=== PATIENT | female | born 1940 | race Caucasian/White ===

== ENCOUNTER → 2018-08-29 08:06 | Outpatient (CLI) | payer MEDICARE, SELFPAY ==
[2018-08-29 10:01] LABS: Thyroid Stimulating Hormone 0.43 uIU/mL (0.47-4.68)
[2018-08-29 10:06] LABS: Aspartate Aminotransferase 26 IU/L (14-36); BUN Creatinine Ratio 16.4 (6-22); Blood Urea Nitrogen 18 mg/dL (7-17); Calcium 9.7 mg/dL (8.4-10.2); Carbon Dioxide 28 mmol/L (22-32); Chloride 102 mmol/L (98-107); Estimated Glomerular Filt Rate 48.2 mL/min (>60); Glucose 81 mg/dL (80-110); HDL Cholesterol 81 mg/dL (40-60); HEMOLYSIS < 15 (0-50); Sodium 139 mmol/L (137-145); Triglycerides 80 mg/dL (35-150)
[2018-08-29 10:14] LABS: Cholesterol 337 mg/dL (140-199); LDL Cholesterol Calculated 240 mg/dL (<100)
== END ==
PROVIDERS: PCP Internal Medicine; Visit Provider Internal Medicine
DX: E03.9 Hypothyroidism, unspecified (principal); E78.2 Mixed hyperlipidemia; N18.1 Chronic kidney disease, stage 1
CPT/HCPCS: 36415; 80048; 80061; 84443; 84450

== ENCOUNTER → 2019-08-31 08:19 | Outpatient (CLI) | payer MEDICARE, SELFPAY | PROVIDERS: PCP Internal Medicine; Referring Provider Internal Medicine; Visit Provider Internal Medicine | DX: E03.9 Hypothyroidism, unspecified (principal) | CPT/HCPCS: 36415; 84443 ==

== ENCOUNTER → 2020-10-12 19:19 | Outpatient (ROUT) | payer OTHER, SELFPAY ==
[2020-10-12 19:49] LABS: Add Manual Diff / Slide Review NO; Basophils Absolute Auto 0 /uL (0-100); Basophils Percent Auto 0.8 % (0-2); Eosinophils Absolute Auto 200 /uL (0-450); Eosinophils Percent Auto 3.7 % (2-4); Hematocrit 37.2 % (36-46); Hemoglobin 12.3 g/dL (12.0-16.0); Lymphocytes Absolute Auto 2200 /uL (1100-4500); Mean Corpuscular HGB Conc 33.2 % (30-36); Mean Corpuscular Hemoglobin 28.3 PG (26-34); Mean Corpuscular Volume 85.4 fL (80-100); Monocytes Absolute Auto 300 /uL (0-900); Monocytes Percent Auto 5.6 % (3-14); Neutrophils Absolute Auto 3200 /uL (1500-7000); Neutrophils Percent Auto 52.9 % (50-75); Platelet Count 233 X10^3/uL (150-400); Red Blood Cell Count 4.36 X10^6/uL (4.0-5.2); Red Cell Distribution Width 14.9 % (11.6-14.8)
[2020-10-12 20:18] LABS: Aspartate Aminotransferase 38 IU/L (14-36); BUN Creatinine Ratio 22.9 (6-22); Blood Urea Nitrogen 25 mg/dL (7-17); Calcium 9.8 mg/dL (8.4-10.2); Carbon Dioxide 27 mmol/L (22-32); Chloride 104 mmol/L (98-107); Estimated Glomerular Filt Rate 48.4 mL/min (>60); Glucose 93 mg/dL (80-110); HDL Cholesterol 75 mg/dL (40-60); HEMOLYSIS < 15 (0-50); Phosphorous 3.8 mg/dL (2.8-4.1); Potassium 4.3 mmol/L (3.4-5.1); Sodium 140 mmol/L (137-145); Triglycerides 156 mg/dL (35-150)
[2020-10-12 20:36] LABS: Cholesterol 354 mg/dL (140-199); LDL Cholesterol Calculated 248 mg/dL (<100)
[2020-10-12 20:38] LABS: Vitamin D 25 Hydroxy (D3) 108 ng/mL (30.0-100.0)
[2020-10-12 20:48] LABS: TSH w/ Reflex to FT4 4.89 uIU/mL (0.47-4.68)
[2020-10-12 21:52] LABS: Free T4, Direct Thyroxine 0.66 ng/dL (0.78-2.19)
[2020-10-14 07:39] LABS: Parathyroid Hormone Int 30 pg/mL (15-65)
== END ==
PROVIDERS: Visit Provider Internal Medicine
DX: N18.30 Chronic kidney disease, stage 3 unspecified (principal); E78.2 Mixed hyperlipidemia; E55.9 Vitamin D deficiency, unspecified; E03.9 Hypothyroidism, unspecified
CPT/HCPCS: 80048; 80061; 82306; 83970; 84100; 84439; 84443; 84450; 85025

== ENCOUNTER 2021-04-15 10:47 | Inpatient (IN) | payer OTHER, SELFPAY ==
[2021-04-15] VITALS (50 sets, daily range): BP systolic 112–188; BP diastolic 57–92; PULSE 60–81; RESP 12–28; TEMP 36.3–37.2; O2SAT 83–98; BMI 25.3; BMI 24.0
[2021-04-15 11:11] LABS: Add Manual Diff / Slide Review NO; Basophils Absolute Auto 0 /uL (0-100); Basophils Percent Auto 0.1 % (0-2); Eosinophils Absolute Auto 0 /uL (0-450); Hematocrit 39.1 % (36-46); Hemoglobin 13.2 g/dL (12.0-16.0); Lymphocytes Absolute Auto 1300 /uL (1100-4500); Lymphocytes Percent Auto 21.1 % (25-40); Mean Corpuscular HGB Conc 33.9 % (30-36); Mean Corpuscular Volume 82.7 fL (80-100); Monocytes Absolute Auto 300 /uL (0-900); Monocytes Percent Auto 5.2 % (3-14); Neutrophils Absolute Auto 4400 /uL (1500-7000); Neutrophils Percent Auto 73.6 % (50-75); Platelet Count 230 X10^3/uL (150-400); Red Blood Cell Count 4.73 X10^6/uL (4.0-5.2); Red Cell Distribution Width 14.6 % (11.6-14.8)
[2021-04-15 11:14] LABS: D Dimer 663 ng/mL (<230)
[2021-04-15 11:17] LABS: Lactate (Lactic Acid) 1.7 mmol/L (0.7-2.1)
[2021-04-15 11:18] LABS: Alanine Aminotransferase 25 IU/L (<35); Albumin 4.2 g/dL (3.5-5.0); Albumin Globulin Ratio 1.2 (1.0-2.8); Alkaline Phosphatase 63 U/L (38-126); Aspartate Aminotransferase 61 IU/L (14-36); BUN Creatinine Ratio 17.9 (6-22); Bilirubin Total 0.8 mg/dL (0.2-1.3); Blood Urea Nitrogen 19 mg/dL (7-17); Calcium 9.3 mg/dL (8.4-10.2); Carbon Dioxide 25 mmol/L (22-32); Chloride 95 mmol/L (98-107); Creatine Kinase 113 U/L (30-135); Globulin 3.5 g/dL (1.7-4.1); Glucose 122 mg/dL (80-110); HEMOLYSIS < 15 (0-50); Potassium 3.6 mmol/L (3.4-5.1); Sodium 129 mmol/L (137-145); Total Protein 7.7 g/dL (6.3-8.2)
[2021-04-15 11:29] LABS: Troponin I 0.018 ng/mL (0.01-0.034)
--- NOTE | 2021-04-15 11:30 | ED.SOB ---
HPI - SOB/Dyspnea General Chief Complaint: Shortness of Breath/Dyspnea Stated Complaint: SOB Covid+ Time Seen by Provider: 04/15/21 10:58 Source: patient and EMS Mode of arrival: EMS Limitations: no limitations History of Present Illness HPI Narrative: The patient did a home test 3 days ago that was positive for COVID-19. She did experiencing cough and congestion for about 3 weeks, seemingly worsening over the past 2 weeks. She had a headache. She denies high fever. She had no change in taste or smell. She has no chronic cardiopulmonary disease. She arrives via EMS due to the complaints of dyspnea. Paramedics noted her to have O2 sats of 79% on room air. She quickly increased to 90s with nasal cannula O2. She is not vaccinated. She has had no obvious exposure to COVID-19. She is alert, and talking in full sentences at the time my interview. She arrives now only at her daughter's encouragement, the patient did not recognize her need for assistance. She is nonsmoker. She has no chronic cardiopulmonary disease. He has no coronary disease. She denies hypertension, diabetes or hyperlipidemia. Her only prescription medication is for hypothyroidism. Related Data Allergies Allergy/AdvReac Type Severity Reaction Status Date / Time No Known Drug Allergies Allergy Verified 04/15/21 11:12 Review of Systems Constitutional Constitutional: Denies body ache(s), Denies chills, Reports fatigue, Denies fever(s), Reports headache(s) and Denies night sweats Eyes Eyes: Denies eye discharge, Denies irritation and Denies itchy eyes ENT Ears, Nose, Mouth, and Throat: Denies vertigo, Denies dizziness, Reports headache(s), Denies hoarseness, Denies nasal congestion and Denies sore throat Comments: She has no loss of taste or smell. Cardiovascular Cardiovascular: Denies chest pain, Denies rapid heart rate, Denies pedal edema and Reports dyspnea Respiratory Respiratory: Reports cough, Denies hemoptysis and Reports dyspnea Gastrointestinal Gastrointestinal: Denies abdominal pain and Denies nausea Genitourinary Genitourinary: Denies dysuria Musculoskeletal Comments: No back pain. No lower extremity pain or edema. Integumentary/Breasts Skin/Breast: Denies rash Neurologic Neurologic: Denies confusion, Denies vertigo, Denies dizziness and Reports headache(s) Psychiatric Psychiatric: Denies confusion Endocrine Endocrine: Reports fatigue Hematologic/Lymphatic Hematologic/Lymphatic: Denies easy bruising Allergic/Immunologic Allergic/Immunologic: Denies itchy eyes Patient History Medical History (Updated 04/15/21 @ 13:49 by Adrián Little MD) Hypothyroidism Social History Smoking Status: Never smoker Smoking Status: Never smoker alcohol intake frequency: holidays/special occasions only Substance Use Type: does not use Exam Initial Vital Signs Initial Vital Signs: Vital Signs Temperature 98.4 F 04/15/21 10:47 Pulse Rate 77 04/15/21 10:47 Respiratory Rate 24 04/15/21 10:47 Blood Pressure 131/74 04/15/21 10:47 Pulse Oximetry 86 L 04/15/21 10:47 Const General: cooperative, healthy appearing and comfortable HENMT Head: normal to inspection and No scalp tenderness Face and sinus: normal facial exam Mouth: oral mucosae normal Throat: posterior oropharynx normal Eyes Conjunctivae: conjunctivae normal Neck Neck: No JVD Thyroid: nontender Resp Auscultation: rales bilaterally throughout Cardio Rhythm: regular rhythm Heart Sounds: S1 normal, S2 normal and no murmurs Pulses: radial pulses present GI Inspection: normal to inspection Palpation: soft and No tender Auscultation: normal bowel sounds Back/Spine/Pelvis Back: No CVA tenderness and No ecchymosis Thoracic/Lumbar Spine: thoracic and lumbar spine normal to inspection Skin General: No erythema Rashes: no rashes Wounds: no wounds Neuro General: patient alert, patient awake, patient oriented x3 and no focal motor deficits Cranial Nerves: CN's II-XI intact bilaterally Cognition: normal cognition Speech: speech normal Motor: muscle tone normal throughout Sensory Exam: no sensory deficits noted Extrem General: normal to inspection and no calf tenderness Psych Mental Status: mental status grossly normal Course Course Course Narrative: COVID-19 has been confirmed by lab test, and CT the chest. She is currently requiring 15 L of oxygen, with O2 sats in the mid 90s. She is talking in full sentences. Abuse ill will be given. Decadron will be given. The case has been discussed with the hospitalist, Dr. Chery. The patient will be admitted for ongoing care. Orders Ordered: ED Orders 04/15/21 11:00 Complete Blood Count AUTO DIFF Stat Comprehensive Metabolic Panel Stat D Dimer Stat Lactate (Lactic Acid) Stat Procalcitonin Stat Troponin & CK Cardiac Panel Stat 04/15/21 11:01 EKG-12 Lead Stat 04/15/21 11:03 COVID19 - ADMIT (FREELANCE DATA ENTRY swab/PCR) Stat Influenza A & B (PCR) Stat 04/15/21 11:08 Arterial Blood Gas Stat Blood Culture Stat 04/15/21 11:31 CT angio chest abdomen Stat Discontinued Medications Albuterol (Albuterol 2.5 Mg/3 Ml Neb (Adult)) 2.5 mg INH NOW ONE Stop: 04/15/21 13:23 Last Admin: 04/15/21 13:45 Dose: 2.5 mg Documented by: Dexamethasone (Dexamethasone 10 Mg/Ml Vial) 6 mg IV NOW ONE Stop: 04/15/21 13:13 Last Admin: 04/15/21 13:33 Dose: 6 mg Documented by: Vital Signs Vital signs: Vital Signs - 8 hr 04/15/21 10:47 04/15/21 10:50 04/15/21 10:51 Temperature 98.4 F 97.4 F L Pulse Rate 77 80 76 Respiratory Rate 24 24 23 Blood Pressure 131/74 131/74 Pulse Oximetry 86 L 83 L 90 L 04/15/21 11:00 04/15/21 11:15 04/15/21 11:30 Temperature Pulse Rate 72 78 74 Respiratory Rate 24 24 20 Blood Pressure 134/69 126/58 L Pulse Oximetry 94 94 96 04/15/21 11:45 04/15/21 11:58 04/15/21 12:00 Temperature Pulse Rate 74 81 72 Respiratory Rate 20 20 Blood Pressure 112/58 L 188/92 H 149/63 H Pulse Oximetry 95 94 95 04/15/21 12:15 04/15/21 12:30 04/15/21 12:45 Temperature Pulse Rate 71 71 77 Respiratory Rate 21 24 22 Blood Pressure 140/69 137/65 132/71 Pulse Oximetry 95 94 04/15/21 13:00 04/15/21 13:15 04/15/21 13:30 Temperature Pulse Rate 69 72 72 Respiratory Rate 17 17 20 Blood Pressure 130/70 135/74 136/76 Pulse Oximetry 93 94 94 04/15/21 13:46 Temperature Pulse Rate 76 Respiratory Rate 24 Blood Pressure Pulse Oximetry 92 MDM - SOB/Dyspnea Lab Data Result diagrams: 04/15/21 11:00 04/15/21 11:00 Labs: Lab Results 04/15/21 04/15/21 04/15/21 Range/Units 11:00 11:00 11:00 WBC 6.0 (4.5-11.0) X10^3/uL RBC 4.73 (4.0-5.2) X10^6/uL Hgb 13.2 (12.0-16.0) g/dL Hct 39.1 (36-46) % MCV 82.7 (80-100) fL MCH 28.0 (26-34) PG MCHC 33.9 (30-36) % RDW 14.6 (11.6-14.8) % Plt Count 230 (150-400) X10^3/uL Neut % (Auto) 73.6 (50-75) % Lymph % (Auto) 21.1 L (25-40) % Jefferson % (Auto) 5.2 (3-14) % Eos % (Auto) 0.0 L (2-4) % Baso % (Auto) 0.1 (0-2) % Neut # (Auto) 4400 (6459-7140) /uL Lymph # (Auto) 1300 (0076-3764) /uL Jefferson # (Auto) 300 (0-900) /uL Eos # (Auto) 0 (0-450) /uL Baso # (Auto) 0 (0-100) /uL D-Dimer 663 H (<230) ng/mL ABG pH (7.35-7.45) ABG pCO2 (35-45) mmHg ABG pO2 (80-100) mmHg ABG HCO3 (22-26) mmol/L ABG Total CO2 (21-31) mmol/L ABG O2 Saturation (95-100) % ABG Base Excess (-2-2) mmol/L FiO2 Sodium (137-145) mmol/L Potassium (3.4-5.1) mmol/L Chloride (98-107) mmol/L Carbon Dioxide (22-32) mmol/L BUN (7-17) mg/dL Creatinine (0.52-1.04) mg/dL Estimated GFR (>60) mL/min BUN/Creatinine Ratio (6-22) Glucose (80-110) mg/dL Lactate (0.7-2.1) mmol/L Calcium (8.4-10.2) mg/dL Total Bilirubin (0.2-1.3) mg/dL AST (14-36) IU/L ALT (<35) IU/L Alkaline Phosphatase (38-126) U/L Total Creatine Kinase (30-135) U/L CK-MB (CK-2) (<2.37) ng/mL CK-MB (CK-2) Rel Index (1.5-5.0) % Troponin I (0.01-0.034) ng/mL Total Protein (6.3-8.2) g/dL Albumin (3.5-5.0) g/dL Globulin (1.7-4.1) g/dL Albumin/Globulin Ratio (1.0-2.8) Procalcitonin 0.43 (<0.5) ng/mL SARS-CoV-2 (PCR) (Negative) Influenza A (RT-PCR) (NEGATIVE) Influenza B (RT-PCR) (NEGATIVE) 04/15/21 04/15/21 04/15/21 Range/Units 11:00 11:00 11:03 WBC (4.5-11.0) X10^3/uL RBC (4.0-5.2) X10^6/uL Hgb (12.0-16.0) g/dL Hct (36-46) % MCV (80-100) fL MCH (26-34) PG MCHC (30-36) % RDW (11.6-14.8) % Plt Count (150-400) X10^3/uL Neut % (Auto) (50-75) % Lymph % (Auto) (25-40) % Jefferson % (Auto) (3-14) % Eos % (Auto) (2-4) % Baso % (Auto) (0-2) % Neut # (Auto) (3093-6045) /uL Lymph # (Auto) (7231-8031) /uL Jefferson # (Auto) (0-900) /uL Eos # (Auto) (0-450) /uL Baso # (Auto) (0-100) /uL D-Dimer (<230) ng/mL ABG pH (7.35-7.45) ABG pCO2 (35-45) mmHg ABG pO2 (80-100) mmHg ABG HCO3 (22-26) mmol/L ABG Total CO2 (21-31) mmol/L ABG O2 Saturation (95-100) % ABG Base Excess (-2-2) mmol/L FiO2 Sodium 129 L (137-145) mmol/L Potassium 3.6 (3.4-5.1) mmol/L Chloride 95 L (98-107) mmol/L Carbon Dioxide 25 (22-32) mmol/L BUN 19 H (7-17) mg/dL Creatinine 1.06 H (0.52-1.04) mg/dL Estimated GFR 50.0 L (>60) mL/min BUN/Creatinine Ratio 17.9 (6-22) Glucose 122 H (80-110) mg/dL Lactate 1.7 (0.7-2.1) mmol/L Calcium 9.3 (8.4-10.2) mg/dL Total Bilirubin 0.8 (0.2-1.3) mg/dL AST 61 H (14-36) IU/L ALT 25 (<35) IU/L Alkaline Phosphatase 63 (38-126) U/L Total Creatine Kinase 113 (30-135) U/L CK-MB (CK-2) 0.87 (<2.37) ng/mL CK-MB (CK-2) Rel Index 0.8 L (1.5-5.0) % Troponin I 0.018 (0.01-0.034) ng/mL Total Protein 7.7 (6.3-8.2) g/dL Albumin 4.2 (3.5-5.0) g/dL Globulin 3.5 (1.7-4.1) g/dL Albumin/Globulin Ratio 1.2 (1.0-2.8) Procalcitonin (<0.5) ng/mL SARS-CoV-2 (PCR) (Negative) Influenza A (RT-PCR) Flu a negative (NEGATIVE) Influenza B (RT-PCR) Flu b negative (NEGATIVE) 04/15/21 04/15/21 Range/Units 11:03 11:08 WBC (4.5-11.0) X10^3/uL RBC (4.0-5.2) X10^6/uL Hgb (12.0-16.0) g/dL Hct (36-46) % MCV (80-100) fL MCH (26-34) PG MCHC (30-36) % RDW (11.6-14.8) % Plt Count (150-400) X10^3/uL Neut % (Auto) (50-75) % Lymph % (Auto) (25-40) % Jefferson % (Auto) (3-14) % Eos % (Auto) (2-4) % Baso % (Auto) (0-2) % Neut # (Auto) (1606-3049) /uL Lymph # (Auto) (1402-7605) /uL Jefferson # (Auto) (0-900) /uL Eos # (Auto) (0-450) /uL Baso # (Auto) (0-100) /uL D-Dimer (<230) ng/mL ABG pH 7.49 H (7.35-7.45) ABG pCO2 27.5 L (35-45) mmHg ABG pO2 59 L (80-100) mmHg ABG HCO3 21 L (22-26) mmol/L ABG Total CO2 22 (21-31) mmol/L ABG O2 Saturation 93 L (95-100) % ABG Base Excess -2.0 (-2-2) mmol/L FiO2 44 Sodium (137-145) mmol/L Potassium (3.4-5.1) mmol/L Chloride (98-107) mmol/L Carbon Dioxide (22-32) mmol/L BUN (7-17) mg/dL Creatinine (0.52-1.04) mg/dL Estimated GFR (>60) mL/min BUN/Creatinine Ratio (6-22) Glucose (80-110) mg/dL Lactate (0.7-2.1) mmol/L Calcium (8.4-10.2) mg/dL Total Bilirubin (0.2-1.3) mg/dL AST (14-36) IU/L ALT (<35) IU/L Alkaline Phosphatase (38-126) U/L Total Creatine Kinase (30-135) U/L CK-MB (CK-2) (<2.37) ng/mL CK-MB (CK-2) Rel Index (1.5-5.0) % Troponin I (0.01-0.034) ng/mL Total Protein (6.3-8.2) g/dL Albumin (3.5-5.0) g/dL Globulin (1.7-4.1) g/dL Albumin/Globulin Ratio (1.0-2.8) Procalcitonin (<0.5) ng/mL SARS-CoV-2 (PCR) Positive H (Negative) Influenza A (RT-PCR) (NEGATIVE) Influenza B (RT-PCR) (NEGATIVE) Imaging Data CT scan - chest: My Impression: The patient has been given initial doses of Decadron and albuterol. She will be admitted ongoing care. The family had requested transfer to [facility], that hospitalist contacted and there are no beds currently available there. Radiologist's Impression: [address] [address] [address] Scan Report Signed Patient: Mora Mosqueda MR#: [id number] : 1940 Acct:[id number] Age/Sex: 80 / F Date of Service: 04/15/21 Loc: ED Accession Number: [id number] ?? Procedure: CT angio chest abdomen Ordering Provider: Adrián Little MD PROCEDURE:? CT ANGIO CHEST ABDOMEN ? INDICATIONS:? Dyspnea.Covid. Elevated D-dimer ? TECHNIQUE:? Precontrast 5 mm thick sections acquired from the lung apices to the iliac crests.? After the administration of intravenous contrast, 2.5 mm thick sections again acquired from the lung apices to the iliac crests.? 10 mm maximum intensity projection (MIP) oblique sagittal and coronal reformats were then acquired.? For radiation dose reduction, the following was used:? automated exposure control.? ? COMPARISON:? None. ? FINDINGS:? Image quality:? Excellent.? ? AORTA:? The aorta measures 4.8 centimeters within the ascending aorta at the level of the right pulmonary artery.? There is normal tapering distally.? Scattered vascular calcifications are noted throughout the aorta and branch vessels.? No evidence of dissection or other acute vascular abnormality. abnormality. ? CHEST:? Lungs and pleura:? Diffuse predominantly peripheral ground-glass opacities and interstitial thickening.? There is bronchiectasis most noticeably at the lung bases in the lung apices.? Cystic region within the right middle lobe likely cycle of remote infection or trauma.. ? Mediastinum:? Heart size is normal.? No pericardial effusion.? No mediastinal or hilar adenopathy by size criteria.? Multiple prominent mediastinal/hilar lymph nodes, likely reactive.? Central pulmonary arteries are normal in size.? No central pulmonary embolus.? Esophagus is normal in caliber.? Small hiatal hernia. ? Bones and chest wall:? No axillary adenopathy by size criteria.? Thyroid gland is unremarkable.? No suspicious bony lesions.? No vertebral body compression fractures.? ? ? ABDOMEN:? Vasculature:? Celiac trunk and mesenteric arteries are patent.? Renal arteries are also patent.? ? Solid organs:? Liver is normal in size and enhancement.? Gallbladder demonstrates gallstones, otherwise unremarkable.? Biliary system is non dilated.? Pancreas enhances normally.? Spleen is normal in size and enhancement.? No adrenal nodules.? Both kidneys are normal in size and enhancement, without hydronephrosis.? ? Peritoneum and bowel:? No free fluid or air.? Bowel loops are normal in caliber and wall thickness.? Fluid is noted throughout the imaged large bowel. ? Nodes and vessels:? No retroperitoneal or mesenteric adenopathy by size criteria.? Inferior vena cava is normal in morphology.? ? Bones:? No suspicious bony lesions.? Degenerative changes of the shoulders and spine.? This is severe within the left shoulder.? There is grade 1 anterolisthesis of L3 on L4 and L4 on L5.? S-shaped curvature is noted of the thoracolumbar spine.? No vertebral body compression fractures.? ? Miscellaneous:? Small fat containing periumbilical hernia. ? ? IMPRESSION:? ? No evidence of aortic dissection. ? 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 ? Diffuse ground-glass and interstitial opacity is suggestive of atypical infection versus inflammation.? This includes Covid pneumonia.? Bronchiectasis at the lung apices and lung bases likely suggest scarring and a chronic process.? Recommend clinical correlation. ? Cholelithiasis. ? Fluid noted throughout the imaged colon.? Recommend correlation for diarrheal illness. ? ? Dictated by: Mode Hughes D.O. on 04/15/2021 at 11:27 ? ? Approved by: Mode Hughes D.O. on 04/15/2021 at 11:37?? ECG Data Attestation: I personally reviewed and interpreted this ECG as follows: (Normal sinus rhythm rate 77 beats per minute. PACs. Normal intervals. QTC 410/QTC 463. No acute ST T wave changes.) Critical Care Time Critical Care Time Critical Care Time: Yes Total Critical Care Time: 35 Attestation: Critical care time includes the initial assessment patient, review of EKG, radiology and lab data, and clinical decision making. The patient was informed of the treatment plan. The hospitalist was consulted. Discharge Plan Departure Patient Disposition: Admitted As Inpatient Clinical Impression: 2019 novel coronavirus-infected pneumonia (NCIP), Hypothyroidism Admit Date/Time: 04/15/21 14:09 Admit Provider: John Chery
--- NOTE | 2021-04-15 11:31 | DI.CT.S_ITS ---
PROCEDURE: CT ANGIO CHEST ABDOMEN INDICATIONS: Dyspnea.Covid. Elevated D-dimer TECHNIQUE: Precontrast 5 mm thick sections acquired from the lung apices to the iliac crests. After the administration of intravenous contrast, 2.5 mm thick sections again acquired from the lung apices to the iliac crests. 10 mm maximum intensity projection (MIP) oblique sagittal and coronal reformats were then acquired. For radiation dose reduction, the following was used: automated exposure control. COMPARISON: None. FINDINGS: Image quality: Excellent. AORTA: The aorta measures 4.8 centimeters within the ascending aorta at the level of the right pulmonary artery. There is normal tapering distally. Scattered vascular calcifications are noted throughout the aorta and branch vessels. No evidence of dissection or other acute vascular abnormality. abnormality. CHEST: Lungs and pleura: Diffuse predominantly peripheral ground-glass opacities and interstitial thickening. There is bronchiectasis most noticeably at the lung bases in the lung apices. Cystic region within the right middle lobe likely cycle of remote infection or trauma.. Mediastinum: Heart size is normal. No pericardial effusion. No mediastinal or hilar adenopathy by size criteria. Multiple prominent mediastinal/hilar lymph nodes, likely reactive. Central pulmonary arteries are normal in size. No central pulmonary embolus. Esophagus is normal in caliber. Small hiatal hernia. Bones and chest wall: No axillary adenopathy by size criteria. Thyroid gland is unremarkable. No suspicious bony lesions. No vertebral body compression fractures. ABDOMEN: Vasculature: Celiac trunk and mesenteric arteries are patent. Renal arteries are also patent. Solid organs: Liver is normal in size and enhancement. Gallbladder demonstrates gallstones, otherwise unremarkable. Biliary system is non dilated. Pancreas enhances normally. Spleen is normal in size and enhancement. No adrenal nodules. Both kidneys are normal in size and enhancement, without hydronephrosis. Peritoneum and bowel: No free fluid or air. Bowel loops are normal in caliber and wall thickness. Fluid is noted throughout the imaged large bowel. Nodes and vessels: No retroperitoneal or mesenteric adenopathy by size criteria. Inferior vena cava is normal in morphology. Bones: No suspicious bony lesions. Degenerative changes of the shoulders and spine. This is severe within the left shoulder. There is grade 1 anterolisthesis of L3 on L4 and L4 on L5. S-shaped curvature is noted of the thoracolumbar spine. No vertebral body compression fractures. Miscellaneous: Small fat containing periumbilical hernia. IMPRESSION: No evidence of aortic dissection. 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 Diffuse ground-glass and interstitial opacity is suggestive of atypical infection versus inflammation. This includes Covid pneumonia. Bronchiectasis at the lung apices and lung bases likely suggest scarring and a chronic process. Recommend clinical correlation. Cholelithiasis. Fluid noted throughout the imaged colon. Recommend correlation for diarrheal illness. Dictated by: Mode Hughes D.O. on 04/15/2021 at 11:27 Approved by: Mode Hughes D.O. on 04/15/2021 at 11:37
[2021-04-15 11:33] LABS: CKMB % Relative Index 0.8 % (1.5-5.0); Creatine Kinase MB 0.87 ng/mL (<2.37)
[2021-04-15 11:38] LABS: PCO2 ABG 27.5 mmHg (35-45); pH ABG 7.49 (7.35-7.45)
[2021-04-15 11:39] LABS: PO2 ABG 59 mmHg (80-100)
[2021-04-15 11:40] LABS: Fractionated Inspired Oxygen 44; HCO3 ABG 21 mmol/L (22-26); Oxygen Saturation ABG 93 % (95-100); TCO2 ABG 22 mmol/L (21-31)
--- NOTE | 2021-04-15 11:42 | RT ---
Pt dayna well, no distress noted and placed on HFNC at 12 lpm nc and dayna well. Sao2 94%, pt taking deep breaths and coughing.
[2021-04-15 11:56] LABS: Procalcitonin 0.43 ng/mL (<0.5)
[2021-04-15 12:11] LABS: COVID19 - ADMIT (NP swab/PCR) POSITIVE (Negative)
[2021-04-15 12:12] LABS: Influenza A - CEPHEID Flu A NEGATIVE (NEGATIVE); Influenza B - CEPHEID Flu B NEGATIVE (NEGATIVE)
--- NOTE | 2021-04-15 12:12 | PC.NURSE ---
Werner Soares- Daughter [phone] Harjeet Mosqueda- Son [phone]
[2021-04-15] MEDS: DEXAMETHASONE 10 MG/ML VIAL 6 MG IV (13:33)
[2021-04-15] MEDS: ALBUTEROL 2.5 MG/3 ML NEB (ADULT) INH (13:45)
--- NOTE | 2021-04-15 17:19 | PM.HP.1 ---
History of Present Illness History of Present Illness Date Patient Seen: 04/15/21 Time Patient Seen: 17:20 Chief complaint: SOB Covid+ Narrative: This is a 80-year-old female with a past medical history of hypothyroidism who was brought in by EMS after being seen by her daughter today who stated that she needed to go to the hospital. Over the past 2 weeks patient has had a dry, nonproductive cough with worsening shortness of breath, mainly on exertion. She denies any chest pain, lower extremity swelling, or overt fever. But she has had diarrhea for the past week, and a loss of taste and smell with decreased appetite over that same period of time. She further endorses headaches, muscle aches, joint pains, generalized weakness and malaise worsening over the past week. Patient has not been vaccinated against COVID-19. Two weeks ago she attended a large gathering at a [employer] ([place] with approximately 100 people. She knows of 1 other person who became COVID positive after that event. She has also been out and about in the community without much restriction. Per ER report, the patient was hypoxic in the field with O2 saturations in the mid 70s. On 6 L here her O2 saturations were in the low 80s. They improved to the low 90s on told 15 L via high-flow nasal cannula and the patient appeared more comfortable. She was initially to quite tachypneic but this improved with supplemental oxygen. ABG showed a PO2 on 6 L of 59, with a pCO2 of 27.5, and a pH of 7.49. Initial chemistries revealed a sodium level of 129, chloride of 95, creatinine of 1.06 which appears near baseline. She had a mild AST elevation at 61 but the remainder of her chemistry panel was unremarkable. Troponin was within normal limits at 0.018. EKG showed normal sinus rhythm with without evidence of acute ischemia. COVID-19 testing was positive, rapid flu PCR testing was negative for both flu a and flu B. CT angiogram of her chest and abdomen showed diffuse bilateral pulmonary ground-glass opacities and interstitial opacities. There was also an incidental 4.8 cm ascending aortic aneurysm that was noted. The patient was admitted to Medicine for further management of her acute respiratory failure with hypoxia secondary to COVID-19 pneumonia. Patient History Medical History Hypothyroidism Surgical History H/O: hysterectomy Family & Social History Family History Mother CAD (coronary artery disease) Father CAD (coronary artery disease) CVA (cerebral vascular accident) Safety & Behavioral: Feels Safe in Current Yes Environment Been Physically Hurt or No Threatened By a Person Tobacco & Substance use: Smoking Status Never smoker alcohol intake frequency holiday/special occasion Substance Use Type does not use Meds Home Medications and Allergies Home Medications Medication Instructions Recorded Confirmed Type levothyroxine 50 mcg tablet 50 mcg PO DAILY 04/15/21 04/15/21 History Allergies Allergy/AdvReac Type Severity Reaction Status Date / Time No Known Drug Allergies Allergy Verified 04/15/21 11:12 Review of Systems Review of Systems Narrative: All other systems reviewed with the patient and are negative unless otherwise stated. Exam Vital Signs (past 8 hours): - 04/15/21 10:47 04/15/21 10:50 04/15/21 10:51 Temperature 98.4 F 97.4 F L Pulse Rate 77 80 76 Respiratory Rate 24 24 23 Blood Pressure 131/74 131/74 Pulse Oximetry 86 L 83 L 90 L 04/15/21 11:00 04/15/21 11:15 04/15/21 11:30 Temperature Pulse Rate 72 78 74 Respiratory Rate 24 24 20 Blood Pressure 134/69 126/58 L Pulse Oximetry 94 94 96 04/15/21 11:45 04/15/21 11:58 04/15/21 12:00 Temperature Pulse Rate 74 81 72 Respiratory Rate 20 20 Blood Pressure 112/58 L 188/92 H 149/63 H Pulse Oximetry 95 94 95 04/15/21 12:15 04/15/21 12:30 04/15/21 12:45 Temperature Pulse Rate 71 71 77 Respiratory Rate 21 24 22 Blood Pressure 140/69 137/65 132/71 Pulse Oximetry 95 94 04/15/21 13:00 04/15/21 13:15 04/15/21 13:30 Temperature Pulse Rate 69 72 72 Respiratory Rate 17 17 20 Blood Pressure 130/70 135/74 136/76 Pulse Oximetry 93 94 94 04/15/21 13:45 04/15/21 13:46 04/15/21 14:00 Temperature Pulse Rate 75 76 76 Respiratory Rate 20 24 19 Blood Pressure 139/77 114/57 L Pulse Oximetry 92 92 90 L 04/15/21 14:15 04/15/21 14:30 04/15/21 14:44 Temperature Pulse Rate 79 71 74 Respiratory Rate 17 17 23 Blood Pressure 130/64 129/67 Pulse Oximetry 92 85 L 94 04/15/21 14:45 04/15/21 15:00 04/15/21 15:15 Temperature 98.9 F Pulse Rate 73 73 69 Respiratory Rate 21 24 24 Blood Pressure 127/69 139/74 137/75 Pulse Oximetry 93 95 97 04/15/21 15:30 04/15/21 15:45 04/15/21 16:00 Temperature Pulse Rate 67 66 71 Respiratory Rate 22 24 21 Blood Pressure 125/69 132/73 132/74 Pulse Oximetry 98 96 94 04/15/21 16:15 04/15/21 16:30 Temperature 97.6 F Pulse Rate 67 72 Respiratory Rate 22 20 Blood Pressure 135/77 143/72 H Pulse Oximetry 93 90 L Oxygen Delivery Method High Flow Nasal Cannula Oxygen Flow Rate 15 Narrative Exam Narrative: GENERAL APPEARANCE: Well developed, well nourished, but mildly ill-appearing elderly female, in no acute distress and appears comfortable. SKIN: Inspection of the skin reveals no rashes, ulcerations. HEENT: Normocephalic atraumatic, extraocular muscles are intact, oropharynx is clear and mucous membranes are moist, neck is supple without adenopathy NECK: Supple and symmetric. There was no thyroid enlargement, and no tenderness, or masses were felt. CHEST: Normal AP diameter and normal contour without any kyphoscoliosis. LUNGS: Auscultation of the lungs revealed bilateral lower lobe crackles with R > L. No wheezing CARDIOVASCULAR: There was a regular rate and rhythm with a 2/6 systolic murmur. Peripheral pulses were 2+ and symmetric. ABDOMEN: S NT ND MUSCULOSKELETAL: There was no tenderness or effusions noted. Muscle strength and tone were normal. EXTREMITIES: No cyanosis, clubbing or edema. NEUROLOGIC: Alert and oriented x 3. Normal affect. Strength is +5/5 in the Upper Extremities and Lower Extremities Bilaterally. Sensation to touch was normal. Objective Imaging CT scan - chest: Radiologist's impression: No evidence of aortic dissection. ? 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 ? Diffuse ground-glass and interstitial opacity is suggestive of atypical infection versus inflammation.? This includes Covid pneumonia.? Bronchiectasis at the lung apices and lung bases likely suggest scarring and a chronic process.? Recommend clinical correlation. ? Cholelithiasis. ? Fluid noted throughout the imaged colon.? Recommend correlation for diarrheal illness. Labs Result Diagrams: 04/15/21 11:00 04/15/21 11:00 Labs: Laboratory Results - last 24 hr 04/15/21 04/15/21 04/15/21 11:00 11:00 11:00 WBC 6.0 RBC 4.73 Hgb 13.2 Hct 39.1 MCV 82.7 MCH 28.0 MCHC 33.9 RDW 14.6 Plt Count 230 Neut % (Auto) 73.6 Lymph % (Auto) 21.1 L [place] % (Auto) 5.2 Eos % (Auto) 0.0 L Baso % (Auto) 0.1 Neut # (Auto) 4400 Lymph # (Auto) 1300 [place] # (Auto) 300 Eos # (Auto) 0 Baso # (Auto) 0 D-Dimer 663 H ABG pH ABG pCO2 ABG pO2 ABG HCO3 ABG Total CO2 ABG O2 Saturation ABG Base Excess FiO2 Sodium Potassium Chloride Carbon Dioxide BUN Creatinine Estimated GFR BUN/Creatinine Ratio Glucose Lactate Calcium Total Bilirubin AST ALT Alkaline Phosphatase Total Creatine Kinase CK-MB (CK-2) CK-MB (CK-2) Rel Index Troponin I Total Protein Albumin Globulin Albumin/Globulin Ratio Procalcitonin 0.43 SARS-CoV-2 (PCR) Influenza A (RT-PCR) Influenza B (RT-PCR) 04/15/21 04/15/21 04/15/21 11:00 11:00 11:03 WBC RBC Hgb Hct MCV MCH MCHC RDW Plt Count Neut % (Auto) Lymph % (Auto) [place] % (Auto) Eos % (Auto) Baso % (Auto) Neut # (Auto) Lymph # (Auto) [place] # (Auto) Eos # (Auto) Baso # (Auto) D-Dimer ABG pH ABG pCO2 ABG pO2 ABG HCO3 ABG Total CO2 ABG O2 Saturation ABG Base Excess FiO2 Sodium 129 L Potassium 3.6 Chloride 95 L Carbon Dioxide 25 BUN 19 H Creatinine 1.06 H Estimated GFR 50.0 L BUN/Creatinine Ratio 17.9 Glucose 122 H Lactate 1.7 Calcium 9.3 Total Bilirubin 0.8 AST 61 H ALT 25 Alkaline Phosphatase 63 Total Creatine Kinase 113 CK-MB (CK-2) 0.87 CK-MB (CK-2) Rel Index 0.8 L Troponin I 0.018 Total Protein 7.7 Albumin 4.2 Globulin 3.5 Albumin/Globulin Ratio 1.2 Procalcitonin SARS-CoV-2 (PCR) Influenza A (RT-PCR) Flu a negative Influenza B (RT-PCR) Flu b negative 04/15/21 04/15/21 11:03 11:08 WBC RBC Hgb Hct MCV MCH MCHC RDW Plt Count Neut % (Auto) Lymph % (Auto) [place] % (Auto) Eos % (Auto) Baso % (Auto) Neut # (Auto) Lymph # (Auto) [place] # (Auto) Eos # (Auto) Baso # (Auto) D-Dimer ABG pH 7.49 H ABG pCO2 27.5 L ABG pO2 59 L ABG HCO3 21 L ABG Total CO2 22 ABG O2 Saturation 93 L ABG Base Excess -2.0 FiO2 44 Sodium Potassium Chloride Carbon Dioxide BUN Creatinine Estimated GFR BUN/Creatinine Ratio Glucose Lactate Calcium Total Bilirubin AST ALT Alkaline Phosphatase Total Creatine Kinase CK-MB (CK-2) CK-MB (CK-2) Rel Index Troponin I Total Protein Albumin Globulin Albumin/Globulin Ratio Procalcitonin SARS-CoV-2 (PCR) Positive H Influenza A (RT-PCR) Influenza B (RT-PCR) Assessment & Plan Assessment & Plan narrative: 1. Acute respiratory failure with hypoxia secondary to COVID 19 pneumonia, present on admission - discussed treatments with patient. She is agreeable to proning, decadron and barcitinib. She does not wish to start remdesevir therapy. - continue supplemental O2 as needed. Currently on HFNC at 12-15L. Goal O2 89-96%. Wean as tolerated. - prone as much as tolerated. - symptomatic therapy with tylenol, motrin, immodium okay if severe diarrhea. - Likely date exposed was 04/01/21 with symptoms starting shortly after. - CT angio chest and abdomen (not PE protocol) did not show evidence of a central pulmonary embolus. 2. Hypothyroidism, chronic - no overt symptoms. Check TSH. 3. Hyponatremia, presumed acute - likely secondary to dehydation. Provide light rehydration given recent decreased PO intake and diarrhea with 70 mL / hr NS. Watch for signs of volume overload but no known heart disease or failure. 4. Ascending aortic aneurysm - 4.8 cm on CTA performed in ER. Recommend outpatient follow up. I have utilized all available immediate resources to obtain, update, or review the patient's current medications. CODE: DNI, would be open to shocking of her heart but if resuscitation means placing on a ventilator she is against this. Surrogate decision maker is her daughter. DVT: Lovenox daily Dispo: Admit as inpatient, if advanced to heated high flow will make ICU. COVID-19 COVID-19 status: Positive Time Spent With Patient Critical Care time: I spent a total of [] minutes of critical care time on this patient's care today; this time is exclusive of procedural time. Quality MIPS - Admit I confirm the patient?s Advance Care Plan is present, Code status is documented, Surrogate decision maker is in patient?s record [If Yes, STOP here]: Yes
[2021-04-15] MEDS: SODIUM CHLORIDE 0.9% 1,000 ML 70 ML IV (18:39)
[2021-04-15] MEDS: SODIUM CHLORIDE 0.9% FLUSH 10 ML IV (21:00)
--- NOTE | 2021-04-15 23:17 | PC.NURSE ---
Admit Note-Patient brought to ICU room 231, she in in Droplet Isolation for Covid-19, on 12-15L HFNC, SpO2 87-92% RR 20, denies shortness of breath, c/o fatigue and nausea, declines offer of antiemetic, taking sips of water and stephanie ted, no vomitting. NS @ 70ml/hr, has not voided and denies urge. Has been side lying. Spoke with daughters Malena and Werner, Malena stated that a family member gave her a 75mg pill of Ivermectin yesterday patient verified this to be true.
[2021-04-16] VITALS (38 sets, daily range): BP systolic 109–150; BP diastolic 62–72; PULSE 52–79; RESP 12–42; TEMP 35.9–37.7; O2SAT 83–100
[2021-04-16 05:01] LABS: Add Manual Diff / Slide Review NO; Basophils Absolute Auto 0 /uL (0-100); Eosinophils Absolute Auto 0 /uL (0-450); Hematocrit 39.7 % (36-46); Hemoglobin 13.3 g/dL (12.0-16.0); Lymphocytes Absolute Auto 1000 /uL (1100-4500); Lymphocytes Percent Auto 15.4 % (25-40); Mean Corpuscular HGB Conc 33.6 % (30-36); Mean Corpuscular Hemoglobin 27.9 PG (26-34); Mean Corpuscular Volume 82.9 fL (80-100); Monocytes Absolute Auto 400 /uL (0-900); Neutrophils Absolute Auto 5000 /uL (1500-7000); Neutrophils Percent Auto 78.6 % (50-75); Platelet Count 244 X10^3/uL (150-400); Red Blood Cell Count 4.78 X10^6/uL (4.0-5.2); Red Cell Distribution Width 14.6 % (11.6-14.8); White Blood Cell Count 6.4 X10^3/uL (4.5-11.0)
[2021-04-16 05:06] LABS: Alanine Aminotransferase 28 IU/L (<35); Albumin 4.1 g/dL (3.5-5.0); Albumin Globulin Ratio 1.1 (1.0-2.8); Alkaline Phosphatase 61 U/L (38-126); Aspartate Aminotransferase 55 IU/L (14-36); BUN Creatinine Ratio 23.8 (6-22); Bilirubin Total 0.7 mg/dL (0.2-1.3); Blood Urea Nitrogen 20 mg/dL (7-17); Calcium 9.2 mg/dL (8.4-10.2); Carbon Dioxide 27 mmol/L (22-32); Chloride 98 mmol/L (98-107); Estimated Glomerular Filt Rate > 60.0 mL/min (>60); Globulin 3.6 g/dL (1.7-4.1); Glucose 128 mg/dL (80-110); HEMOLYSIS < 15 (0-50); Magnesium 2.3 mg/dL (1.6-2.3); Potassium 4.2 mmol/L (3.4-5.1); Sodium 133 mmol/L (137-145); Total Protein 7.7 g/dL (6.3-8.2)
[2021-04-16 05:07] LABS: C-Reactive Protein Quant 5.8 mg/dL (<1.0); Lactate Dehydrogenase 938 U/L (313-618)
[2021-04-16 05:12] LABS: Hemoglobin A1C% w Est Avg Glu 5.6 % (4.0-6.0)
[2021-04-16 05:19] LABS: Erythrocyte Sedimentation Rate 85 MM/HR (0-20)
[2021-04-16 05:40] LABS: Ferritin 670 ng/mL (11-264)
[2021-04-16 05:42] LABS: TSH w/ Reflex to FT4 7.03 uIU/mL (0.47-4.68)
[2021-04-16 06:15] LABS: Free T4, Direct Thyroxine 0.75 ng/dL (0.78-2.19)
[2021-04-16] MEDS: ONDANSETRON 4 MG ODT PO (08:25)
--- NOTE | 2021-04-16 10:38 | PC.NURSE ---
Addendum entered by Sarah Beth Mcdowell R.N. 04/16/21 14:50: Daughter wishes to be notified if patient is refusing medication. Werner Chino [phone] Addendum entered by Sarah Beth Mcdowell R.N. 04/16/21 12:57: 1245-Daughter called, Werner. Ok to release info per Pt. Daughter is very upset that Patient has refused medication this am. This RN explained Pt has been reproached multiple times this am but is still refusing some medication. Explained this to daughter who is upset that we have not forced medication to her Mother. Explained that she is alert and oriented and has a right to refuse medication, and we have to follow that. This was not what Werner wanted to hear, and was unpleasant when explained about the right to refuse treatment and medication. Daughter stated, I will have her transferred to a facility that will make her take it then At this point, the belligerent conversation continued in circles with no goal, and the call was transferred to patient, at her request. When the daughter called back to the nurses station, student outreach coordinator GARCIA Hernandez took call as this Rn continued care of patients. Daughter called back, remains displeased with non authoritative options given for care, she should only be given the option to take it or be intubated Call ended with clear explanation of goals of care to be, yet again, explained to patient at bedside. Pt resting in recliner at present with 15 L HFNC 88-93% Spo2. Poor PO intake this shift. NS @ 70mls/hr to PIV, BSC to void. Addendum entered by Sarah Beth Mcdowell R.N. 04/16/21 11:34: Pt has decided not to take Remdesivir or Olumiant. Will take Decadron, not proning this shift. Attempts at side lying, and sitting up in chair at present. Very chad discussion with patient about refusing care and medications for best outcomes, vs noncompliance and increased 02 needs since admission. Pt states that she understands all the doom and gloom, do you really think that I wont make it? Clear recomendation for accepting treatment as outlined by Hospitalist. Pt continues to decline. Update to Dr Chery. Original Note: Am shift Assumed care of Pt @ 0700, Resting in bed side laying with no apparent distress. HFNC @ 13-15 L for Spo2 >88% Pulse ox with difficulty picking up a decent read d/t ice cold hands. Ear cliip, same result. Pt reporting nausea tj with change in positions. Up to BSC with small dry heaving. Zofran given PO with good effect. No emesis, delay to PO meds. Pt declined breakfast, drinking hot tea. Able to rest after sitting up at bedside. 1PA to BSC, pivot transfer. Pt is fatiguing quickly with any activity.
--- NOTE | 2021-04-16 11:08 | CM.DANOTE ---
DCP: Case received, EMR reviewed. Did not meet with patient secondary to her having COVID 19, and patient has been sleeping, and having some nausea. Was able to complete DCP assessment based upon information in EMR, and information during team rounds. Patient is a 80 year old female who admitted yesterday morning to the care of the hospitalist team. PCP: Dr. Nieto. Payer: confirmed: [employer] [facility]. Patient came to the hospital via ambulance secondary to her having increased shortness of breath. Patient had done a home COVID test about 3 days and was positive. She has noted increased coughing and congestion. She is here with COVID Pneumonia. Patient is unvaccinated. Discussed patient during team rounds. Patient had recently been to a constitution party at her [employer] around several people. Patient is independent at her baseline according to notes, but nurse, Sarah Beth, indicated that she needed some assistance to the bathroom secondary to her nausea. She has a daughter, Malena, who is point of contact and lives in [place]. P: DCP to continue to follow. Patient should be able to go home when she is deemed medically stable. Kalpana Shahid RN/Paper Feeder Discharge Planning/Care Management CM Discharge Assessment Start: 04/16/21 11:03 Freq: Status: Active Protocol: Document 04/16/21 11:07 (Rec: 04/16/21 11:08 [id number]) Discharge Planning Assessment Assigned Hydrochloric Manufacturing Supervisor Kalpana Shahid RN/Paper Feeder Advance Directives? Yes Advance Directives on File No History Provided By Patient,Medical Record Prior Living Arrangements House Household Members none Type of transporation used prior to Drives own vehicle admit Independent with ADL's Yes Is patient alert and oriented? Yes Caregiver for Another No Barriers to Discharge No Discharge Plan Home Transportation Arrangement Family Referrals Initiated None needed Whiteboard Updated in Patient Room with Yes name and ext. # of Hydrochloric Manufacturing Supervisor Review Status In Process Next Review Type Continued Stay Review
[2021-04-16] MEDS: LEVOTHYROXINE 25 MCG TABLET PO (11:13)
[2021-04-16] MEDS: SODIUM CHLORIDE 0.9% FLUSH 10 ML IV ×2 (11:15→20:30)
[2021-04-16] MEDS: DEXAMETHASONE 10 MG/ML VIAL 6 MG IV (13:54)
[2021-04-16] MEDS: ENOXAPARIN 40 MG/0.4 ML SYRINGE SUBCUT (13:55)
[2021-04-16] MEDS: BARICITINIB 2 MG TABLET 4 MG PO (13:55)
[2021-04-16] MEDS: SODIUM CHLORIDE 0.9% 1,000 ML 70 ML IV (13:56)
--- NOTE | 2021-04-16 15:32 | PM.PN.1 ---
Subjective Subjective Date Patient Seen: 04/16/21 Time Patient Seen: 15:32 Interval history: Reports improved shortness of breath, still no taste and has lack of appetite. Denies nausea or vomiting. No abdominal or chest pain. Exam Vital Signs (past 8 hours): - 04/16/21 07:48 04/16/21 08:45 04/16/21 11:00 Temperature 98.9 F Pulse Rate 63 79 Respiratory Rate 20 24 Blood Pressure 134/62 134/68 Pulse Oximetry 95 91 94 04/16/21 11:10 04/16/21 12:00 Temperature 99.9 F H Pulse Rate 75 76 Respiratory Rate 23 30 H Blood Pressure 134/62 Pulse Oximetry 92 93 Oxygen Delivery Method High Flow Nasal Cannula Oxygen Flow Rate 15 Narrative Exam Narrative: GENERAL APPEARANCE: Well developed, well nourished, but mildly ill-appearing elderly female, in no acute distress and appears comfortable. SKIN: Inspection of the skin reveals no rashes, ulcerations. HEENT:? Normocephalic atraumatic, extraocular muscles are intact, oropharynx is clear and mucous membranes are moist, neck is supple without adenopathy NECK: Supple and symmetric. There was no thyroid enlargement, and no tenderness, or masses were felt. CHEST: Normal AP diameter and normal contour without any kyphoscoliosis. LUNGS: Auscultation of the lungs revealed bilateral lower lobe crackles with R > L. No wheezing CARDIOVASCULAR: There was a regular rate and rhythm with a 2/6 systolic murmur. Peripheral pulses were 2+ and symmetric. ABDOMEN: S NT ND MUSCULOSKELETAL: There was no tenderness or effusions noted. Muscle strength and tone were normal. EXTREMITIES: No cyanosis, clubbing or edema. NEUROLOGIC: Alert and oriented x 3. Normal affect. Strength is +5/5 in the Upper Extremities and Lower Extremities Bilaterally. Sensation to touch was normal. Objective Labs Result Diagrams: 04/16/21 04:39 04/16/21 04:39 Labs: Laboratory Results - last 24 hr 04/15/21 04/16/21 04/16/21 05:00 04:39 04:39 WBC 6.4 RBC 4.78 Hgb 13.3 Hct 39.7 MCV 82.9 MCH 27.9 MCHC 33.6 RDW 14.6 Plt Count 244 Neut % (Auto) 78.6 H Lymph % (Auto) 15.4 L [place] % (Auto) 6.0 Eos % (Auto) 0.0 L Baso % (Auto) 0.0 Neut # (Auto) 5000 Lymph # (Auto) 1000 L [place] # (Auto) 400 Eos # (Auto) 0 Baso # (Auto) 0 ESR Sodium 133 L Potassium 4.2 Chloride 98 Carbon Dioxide 27 BUN 20 H Creatinine 0.84 Estimated GFR > 60.0 BUN/Creatinine Ratio 23.8 H Glucose 128 H Hemoglobin A1c Calcium 9.2 Magnesium 2.3 Ferritin Total Bilirubin 0.7 AST 55 H ALT 28 Alkaline Phosphatase 61 Lactate Dehydrogenase C-Reactive Protein Total Protein 7.7 Albumin 4.1 Globulin 3.6 Albumin/Globulin Ratio 1.1 TSH Free T4 Nasal Screen MRSA (PCR) Negative for mrsa 04/16/21 04/16/21 04/16/21 04:39 04:39 04:39 WBC RBC Hgb Hct MCV MCH MCHC RDW Plt Count Neut % (Auto) Lymph % (Auto) [place] % (Auto) Eos % (Auto) Baso % (Auto) Neut # (Auto) Lymph # (Auto) [place] # (Auto) Eos # (Auto) Baso # (Auto) ESR 85 H Sodium Potassium Chloride Carbon Dioxide BUN Creatinine Estimated GFR BUN/Creatinine Ratio Glucose Hemoglobin A1c 5.6 Calcium Magnesium Ferritin Total Bilirubin AST ALT Alkaline Phosphatase Lactate Dehydrogenase C-Reactive Protein Total Protein Albumin Globulin Albumin/Globulin Ratio TSH 7.03 H Free T4 0.75 L Nasal Screen MRSA (PCR) 04/16/21 04:39 WBC RBC Hgb Hct MCV MCH MCHC RDW Plt Count Neut % (Auto) Lymph % (Auto) [place] % (Auto) Eos % (Auto) Baso % (Auto) Neut # (Auto) Lymph # (Auto) [place] # (Auto) Eos # (Auto) Baso # (Auto) ESR Sodium Potassium Chloride Carbon Dioxide BUN Creatinine Estimated GFR BUN/Creatinine Ratio Glucose Hemoglobin A1c Calcium Magnesium Ferritin 670 H Total Bilirubin AST ALT Alkaline Phosphatase Lactate Dehydrogenase 938 H C-Reactive Protein 5.8 H Total Protein Albumin Globulin Albumin/Globulin Ratio TSH Free T4 Nasal Screen MRSA (PCR) [facility] Medical History Hypothyroidism Surgical History H/O: hysterectomy Family History Mother CAD (coronary artery disease) Father CAD (coronary artery disease) CVA (cerebral vascular accident) Social History household members: none Smoking Status: Never smoker Assessment & Plan Assessment & Plan narrative: 1. Acute respiratory failure with hypoxia secondary to COVID 19 pneumonia, present on admission ?- discussed treatments with patient. She is agreeable to proning though has not tried, decadron and barcitinib. She does not wish to start remdesevir therapy. ?- continue supplemental O2 as needed. Currently on HFNC, initially 15L now slightly improved to 11L. Goal O2 89-96%. Wean as tolerated. ?- prone as much as tolerated. ?- symptomatic therapy with tylenol, motrin, immodium okay if severe diarrhea. ?- Likely date exposed was 04/01/21 with symptoms starting shortly after. ?- CT angio chest and abdomen (not PE protocol) did not show evidence of a central pulmonary embolus. 2. Hypothyroidism, chronic ?- no overt symptoms. High Free T4 and low TSH, her home dosing was reduced from 50 mcg to 25. 3. Hyponatremia, presumed acute ?- likely secondary to dehydation. Provide light rehydration given recent decreased PO intake and diarrhea with 70 mL / hr NS. Watch for signs of volume overload but no known heart disease or failure. 4. Ascending aortic aneurysm ?- 4.8 cm on CTA performed in ER. Recommend outpatient follow up. I have utilized all available immediate resources to obtain, update, or review the patient's current medications. CODE: DNI, would be open to shocking of her heart but if resuscitation means placing on a ventilator she is against this. Surrogate decision maker is her daughter. DVT: Lovenox daily Dispo: Admit as inpatient, if advanced to heated high flow will make ICU. Time Spent With Patient Critical Care time: I spent a total of [] minutes of critical care time on this patient's care today; this time is exclusive of procedural time. Quality VTE Deep Vein Thrombosis/Pulmonary Embolism Present on Admission: No
[2021-04-17] VITALS (33 sets, daily range): BP systolic 115–176; BP diastolic 66–82; PULSE 46–76; RESP 10–36; TEMP 36.5–37.1; O2SAT 83–100
[2021-04-17] MEDS: ONDANSETRON 4 MG ODT PO (04:33)
[2021-04-17 05:10] LABS: Add Manual Diff / Slide Review NO; Basophils Absolute Auto 0 /uL (0-100); Basophils Percent Auto 0.1 % (0-2); Eosinophils Absolute Auto 0 /uL (0-450); Hematocrit 36.3 % (36-46); Hemoglobin 12.1 g/dL (12.0-16.0); Lymphocytes Absolute Auto 900 /uL (1100-4500); Lymphocytes Percent Auto 15.2 % (25-40); Mean Corpuscular HGB Conc 33.3 % (30-36); Mean Corpuscular Hemoglobin 27.8 PG (26-34); Mean Corpuscular Volume 83.5 fL (80-100); Monocytes Absolute Auto 300 /uL (0-900); Monocytes Percent Auto 5.4 % (3-14); Neutrophils Absolute Auto 4700 /uL (1500-7000); Neutrophils Percent Auto 79.3 % (50-75); Platelet Count 254 X10^3/uL (150-400); Red Blood Cell Count 4.34 X10^6/uL (4.0-5.2); Red Cell Distribution Width 14.7 % (11.6-14.8); White Blood Cell Count 5.9 X10^3/uL (4.5-11.0)
[2021-04-17 05:18] LABS: Alanine Aminotransferase 36 IU/L (<35); Albumin 3.6 g/dL (3.5-5.0); Albumin Globulin Ratio 1.1 (1.0-2.8); Alkaline Phosphatase 59 U/L (38-126); Aspartate Aminotransferase 63 IU/L (14-36); BUN Creatinine Ratio 25.6 (6-22); Bilirubin Total 0.5 mg/dL (0.2-1.3); Blood Urea Nitrogen 23 mg/dL (7-17); Calcium 8.9 mg/dL (8.4-10.2); Carbon Dioxide 26 mmol/L (22-32); Chloride 102 mmol/L (98-107); Estimated Glomerular Filt Rate > 60.0 mL/min (>60); Globulin 3.2 g/dL (1.7-4.1); Glucose 127 mg/dL (80-110); HEMOLYSIS < 15 (0-50); Magnesium 2.3 mg/dL (1.6-2.3); Potassium 4.7 mmol/L (3.4-5.1); Sodium 134 mmol/L (137-145); Total Protein 6.8 g/dL (6.3-8.2)
[2021-04-17] MEDS: LEVOTHYROXINE 25 MCG TABLET PO (06:24)
[2021-04-17] MEDS: SODIUM CHLORIDE 0.9% FLUSH 10 ML IV ×2 (08:48→21:13)
[2021-04-17] MEDS: BARICITINIB 2 MG TABLET 4 MG PO (08:48)
--- NOTE | 2021-04-17 08:48 | DIET.PN1 ---
Dietary Progress Note Assessment: 80y F admitted for acute respiratory failure secondary to covid19+ status screened by RD for continued poor POs this hospitalization. Recc trial of Ensure Max c lunch today to see if pt accepting. Ht: 167.64 cm Wt: 68 kg BMI: 24.0 Last BM: 04/16/21 (04/16/21 19:15) MNA: 11 Brendon Score: 20 Diet: 04/15/21 Dinner General (Regular) Diet Diet Modifications: Nutrition Percent Meal Consumed 0% 04/16/21 09:55 Labs: RBC 4.34 X10^6/uL (4.0-5.2) 04/17/21 04:25 Hgb 12.1 g/dL (12.0-16.0) 04/17/21 04:25 Hct 36.3 % (36-46) 04/17/21 04:25 Creatinine 0.90 mg/dL (0.52-1.04) 04/17/21 04:25 Hemoglobin A1c 5.6 % (4.0-6.0) 04/16/21 04:39 Lactate 1.7 mmol/L (0.7-2.1) 04/15/21 11:00 Ferritin 670 ng/mL (11-264) H 04/16/21 04:39 Electronically Signed by: Monica Khan 04/17/21 08:48 Clinical Dietitian [address] [id number]
[2021-04-17] MEDS: ENOXAPARIN 40 MG/0.4 ML SYRINGE SUBCUT (08:53)
[2021-04-17] MEDS: DEXAMETHASONE 10 MG/ML VIAL 6 MG IV (08:53)
--- NOTE | 2021-04-17 13:57 | PM.PN.1 ---
Subjective Subjective Date Patient Seen: 04/17/21 Time Patient Seen: 08:00 Interval history: She has mild shortness of breath currently. Still coughing. She is also having significant nausea, and reduced appetite. Exam Vital Signs (past 8 hours): - 04/17/21 06:00 04/17/21 09:00 04/17/21 09:29 Temperature Pulse Rate 62 58 L Respiratory Rate 23 14 Blood Pressure 137/70 125/73 Pulse Oximetry 100 93 97 04/17/21 12:32 04/17/21 13:00 Temperature 98.2 F Pulse Rate 76 Respiratory Rate 25 H Blood Pressure 115/66 Pulse Oximetry 92 95 Oxygen Delivery Method Heated High Flow Oxygen Flow Rate 15 Narrative Exam Narrative: GENERAL APPEARANCE: no acute distress LUNGS: poor air movement bilaterally CARDIOVASCULAR: regular rate and rhythm with a 2/6 systolic murmur ABDOMEN: soft, nontender, nondistended, no organomegaly Objective Labs Result Diagrams: 04/17/21 04:25 04/17/21 04:25 Labs: Laboratory Results - last 24 hr 04/17/21 04/17/21 04:25 04:25 WBC 5.9 RBC 4.34 Hgb 12.1 Hct 36.3 MCV 83.5 MCH 27.8 MCHC 33.3 RDW 14.7 Plt Count 254 Neut % (Auto) 79.3 H Lymph % (Auto) 15.2 L Armstrong % (Auto) 5.4 Eos % (Auto) 0.0 L Baso % (Auto) 0.1 Neut # (Auto) 4700 Lymph # (Auto) 900 L Armstrong # (Auto) 300 Eos # (Auto) 0 Baso # (Auto) 0 Sodium 134 L Potassium 4.7 Chloride 102 Carbon Dioxide 26 BUN 23 H Creatinine 0.90 Estimated GFR > 60.0 BUN/Creatinine Ratio 25.6 H Glucose 127 H Calcium 8.9 Magnesium 2.3 Total Bilirubin 0.5 AST 63 H ALT 36 H Alkaline Phosphatase 59 Total Protein 6.8 Albumin 3.6 Globulin 3.2 Albumin/Globulin Ratio 1.1 PFSH Medical History Hypothyroidism Surgical History H/O: hysterectomy Family History Mother CAD (coronary artery disease) Father CAD (coronary artery disease) CVA (cerebral vascular accident) Social History household members: none Smoking Status: Never smoker Assessment & Plan Assessment & Plan narrative: 1. Acute respiratory failure with hypoxia secondary to COVID 19 pneumonia, present on admission ?- resfused remdesivir - on baracitinib, dexamethasone -proning encourage ?- continue supplemental O2 as needed. Currently on HFNC, initially 15L now slightly improved to 11L. Goal O2 >88%. Wean as tolerated. ?- symptomatic therapy with tylenol, motrin, immodium okay if severe diarrhea. ?- Likely date exposed was 04/01/21 with symptoms starting shortly after. ?- CT angio chest and abdomen (not PE protocol) did not show evidence of a central pulmonary embolus. 2. Hypothyroidism, chronic ?- no overt symptoms. High Free T4 and low TSH, her home dosing was reduced from 50 mcg to 25. 3. Hyponatremia, presumed acute ?- likely secondary to dehydation. Provide light rehydration given recent decreased PO intake and diarrhea with 70 mL / hr NS. Watch for signs of volume overload but no known heart disease or failure. 4. Ascending aortic aneurysm ?- 4.8 cm on CTA performed in ER. Recommend outpatient follow up. Time Spent With Patient Critical Care time: I spent a total of [] minutes of critical care time on this patient's care today; this time is exclusive of procedural time. Quality VTE Deep Vein Thrombosis/Pulmonary Embolism Present on Admission: No
--- NOTE | 2021-04-17 17:38 | PC.NURSE ---
PT SLIGHTLY ANXIOUS THROUGHOUT THIS SHIFT- ABLE TO PRONE THIS PM SINCE 4:45- WITH SPO2 96-100% ON 6L HFNC - SHE REQUIRED INCREASE OF O2 FOR ACTIVITY SUCH SHOWERING, LUNGS REMAIN COARSE THROUGHOUT WELL DIMINISHED, NO EDEMA NOTED AND TELE SHOWS SB/SR. SHE DENIES ANY PAIN BUT ENDORSES BEING uncomfortable declines any prn medication for this - decreased po intake denies much nausea but declares no appetite. UPDATE TO FAMILY MEMBERS AND REQUESTED ONE PERSON BE THE MEDIA PRODUCTION MANAGER EACH CALL FROM [place] TAKES AWAY FROM CARING FOR THEIR LOVED ONE- THIS WAS MET WITH UNDERSTANDING FROM DAUGHTER-MARTINEZ
[2021-04-18] VITALS (56 sets, daily range): BP systolic 123–182; BP diastolic 60–86; PULSE 39–113; RESP 0–28; TEMP 36.5–37.1; O2SAT 82–100
[2021-04-18 05:07] LABS: Add Manual Diff / Slide Review NO; Basophils Absolute Auto 0 /uL (0-100); Eosinophils Absolute Auto 0 /uL (0-450); Hematocrit 36.4 % (36-46); Hemoglobin 12.3 g/dL (12.0-16.0); Lymphocytes Absolute Auto 1000 /uL (1100-4500); Lymphocytes Percent Auto 14.3 % (25-40); Mean Corpuscular HGB Conc 33.9 % (30-36); Mean Corpuscular Hemoglobin 28.1 PG (26-34); Mean Corpuscular Volume 82.7 fL (80-100); Monocytes Absolute Auto 500 /uL (0-900); Monocytes Percent Auto 7.3 % (3-14); Neutrophils Absolute Auto 5600 /uL (1500-7000); Neutrophils Percent Auto 78.4 % (50-75); Platelet Count 300 X10^3/uL (150-400); Red Cell Distribution Width 14.7 % (11.6-14.8); White Blood Cell Count 7.2 X10^3/uL (4.5-11.0)
[2021-04-18 05:14] LABS: Alanine Aminotransferase 33 IU/L (<35); Albumin 3.5 g/dL (3.5-5.0); Albumin Globulin Ratio 1.1 (1.0-2.8); Alkaline Phosphatase 60 U/L (38-126); Aspartate Aminotransferase 45 IU/L (14-36); BUN Creatinine Ratio 27.4 (6-22); Bilirubin Total 0.6 mg/dL (0.2-1.3); Blood Urea Nitrogen 23 mg/dL (7-17); Carbon Dioxide 28 mmol/L (22-32); Chloride 101 mmol/L (98-107); Estimated Glomerular Filt Rate > 60.0 mL/min (>60); Globulin 3.3 g/dL (1.7-4.1); Glucose 113 mg/dL (80-110); HEMOLYSIS < 15 (0-50); Magnesium 2.3 mg/dL (1.6-2.3); Potassium 4.6 mmol/L (3.4-5.1); Sodium 134 mmol/L (137-145); Total Protein 6.8 g/dL (6.3-8.2)
[2021-04-18] MEDS: LEVOTHYROXINE 50 MCG TABLET PO (06:43)
[2021-04-18] MEDS: ENOXAPARIN 40 MG/0.4 ML SYRINGE SUBCUT (09:11)
[2021-04-18] MEDS: MAGNESIUM HYDROXIDE 30 ML UDC PO (09:11)
[2021-04-18] MEDS: BARICITINIB 2 MG TABLET 4 MG PO (09:11)
[2021-04-18] MEDS: DEXAMETHASONE 10 MG/ML VIAL 6 MG IV (09:12)
[2021-04-18] MEDS: SODIUM CHLORIDE 0.9% FLUSH 10 ML IV ×2 (09:16→20:49)
--- NOTE | 2021-04-18 10:47 | PM.PN.1 ---
Subjective Subjective Date Patient Seen: 04/18/21 Time Patient Seen: 08:00 Interval history: Today she feels her stomach is improving with no nausea or pain. She does not feel currently short of breath, but still requires significant oxygen, and gets short of breath with minimal activity. Exam Vital Signs (past 8 hours): - 04/18/21 03:00 04/18/21 03:37 04/18/21 04:00 Temperature Pulse Rate 52 L 63 66 Respiratory Rate Blood Pressure 149/77 H Pulse Oximetry 87 L 90 L 90 L 04/18/21 04:26 04/18/21 05:00 04/18/21 06:00 Temperature 98.2 F Pulse Rate 62 47 L 61 Respiratory Rate 18 Blood Pressure 149/77 H Pulse Oximetry 91 96 96 04/18/21 07:00 04/18/21 08:00 04/18/21 08:45 Temperature 97.9 F Pulse Rate 62 67 Respiratory Rate 22 Blood Pressure 154/80 H Pulse Oximetry 89 L 93 97 04/18/21 09:00 Temperature Pulse Rate 61 Respiratory Rate 20 Blood Pressure Pulse Oximetry 91 Oxygen Delivery Method High Flow Nasal Cannula Oxygen Flow Rate 10 Narrative Exam Narrative: GENERAL APPEARANCE: no acute distress LUNGS: poor air movement bilaterally CARDIOVASCULAR: regular rate and rhythm with a 2/6 systolic murmur ABDOMEN: soft, nontender, nondistended, no organomegaly Objective Labs Result Diagrams: 04/18/21 04:39 04/18/21 04:39 Labs: Laboratory Results - last 24 hr 04/18/21 04/18/21 04:39 04:39 WBC 7.2 RBC 4.40 Hgb 12.3 Hct 36.4 MCV 82.7 MCH 28.1 MCHC 33.9 RDW 14.7 Plt Count 300 Neut % (Auto) 78.4 H Lymph % (Auto) 14.3 L White % (Auto) 7.3 Eos % (Auto) 0.0 L Baso % (Auto) 0.0 Neut # (Auto) 5600 Lymph # (Auto) 1000 L White # (Auto) 500 Eos # (Auto) 0 Baso # (Auto) 0 Sodium 134 L Potassium 4.6 Chloride 101 Carbon Dioxide 28 BUN 23 H Creatinine 0.84 Estimated GFR > 60.0 BUN/Creatinine Ratio 27.4 H Glucose 113 H Calcium 9.0 Magnesium 2.3 Total Bilirubin 0.6 AST 45 H ALT 33 Alkaline Phosphatase 60 Total Protein 6.8 Albumin 3.5 Globulin 3.3 Albumin/Globulin Ratio 1.1 PFSH Medical History Hypothyroidism Surgical History H/O: hysterectomy Family History Mother CAD (coronary artery disease) Father CAD (coronary artery disease) CVA (cerebral vascular accident) Social History household members: none Smoking Status: Never smoker Assessment & Plan Assessment & Plan narrative: 1. Acute respiratory failure with hypoxia secondary to COVID 19 pneumonia, present on admission - resfused remdesivir - on baracitinib, dexamethasone -proning encourage - continue supplemental O2 as needed. Currently on HFNC, initially 15L now slightly improved to 11L. Goal O2 >88%. Wean as tolerated. - symptomatic therapy with tylenol, motrin, immodium okay if severe diarrhea. - Likely date exposed was 04/01/21 with symptoms starting shortly after. - CT angio chest and abdomen (not PE protocol) did not show evidence of a central pulmonary embolus. 2. Hypothyroidism, chronic ?- no overt symptoms. High Free T4 and low TSH, her home dosing was reduced from 50 mcg to 25. 3. Hyponatremia, presumed acute ?- likely secondary to dehydation. Provide light rehydration given recent decreased PO intake and diarrhea with 70 mL / hr NS. Watch for signs of volume overload but no known heart disease or failure. 4. Ascending aortic aneurysm ?- 4.8 cm on CTA performed in ER. Recommend outpatient follow up. Time Spent With Patient Critical Care time: I spent a total of [] minutes of critical care time on this patient's care today; this time is exclusive of procedural time. Quality VTE Deep Vein Thrombosis/Pulmonary Embolism Present on Admission: No
--- NOTE | 2021-04-18 17:06 | DI.RAD.S_ITS ---
PROCEDURE: XR CHEST 1V INDICATIONS: worsening hypoxemia TECHNIQUE: One view of the chest was acquired. COMPARISON: [facility], CT, CT ANGIO CHEST ABDOMEN, 04/15/2021, 11:42. FINDINGS: Surgical changes and devices: None. Lungs and pleura: Bilateral patchy areas of interstitial opacity in the right upper, lower, and left mid lung regions. No dense consolidations. No pleural effusion or pneumothorax. Mediastinum: Mediastinal contours appear normal. Heart size is normal. Bones and chest wall: Multilevel degenerative disc changes throughout the spine. Moderate degenerative change in both shoulders. IMPRESSION: 1. Bilateral interstitial opacities without dense consolidation, similar in extent compared to the prior CT scan. Dictated by: Bea Landeros M.D. on 04/18/2021 at 18:06 Approved by: Bea Landeros M.D. on 04/18/2021 at 18:08
--- NOTE | 2021-04-18 18:42 | PC.NURSE ---
PLACED ON HHFNC AT 50l/75% due to increasing hypoxia- pt comfortable at this time- cxr completed, saline lock x 2 - still needs bm
--- NOTE | 2021-04-18 20:19 | P.TELICUCN_ITS ---
History of Present Illness Consult details Chief complaint: SOB Covid+ :: This patient was seen via real time interactive two-way audiovisual telecommunication. Narrative: Patient is a 80 year old female with history of hypothyroidism admitted for acute hypoxemia respiratory failure secondary to COVID-19. She was started on decadron and baricitinib. Hospital course complicated with worsening hypoxemia requiring HFNC 60/75% which she was upgraded to ICU level of care. No diuretic initiated since hospital stay. [facility] Medical History Hypothyroidism Surgical History H/O: hysterectomy Family History Mother CAD (coronary artery disease) Father CAD (coronary artery disease) CVA (cerebral vascular accident) Social History household members: none Smoking Status: Never smoker Current Medications Current Medications Medications: Home Medications levothyroxine 50 mcg tablet 50 mcg PO DAILY 04/15/21 [History Confirmed 04/15/21] Visit Medications (administered) Generic Name Dose Route Start Last Admin Trade Name Freq PRN Reason Stop Dose Admin Dexamethasone 6 mg 04/16/21 09:00 04/18/21 09:12 Dexamethasone 10 Mg/Ml Vial IV 6 mg DAILY HEAVEN Administration Enoxaparin Sodium 40 mg 04/16/21 09:00 04/18/21 09:11 Enoxaparin 40 Mg/0.4 Ml Syringe SUBCUT 40 mg DAILY HEAVEN Administration Levothyroxine Sodium 50 mcg 04/18/21 06:00 04/18/21 06:43 Levothyroxine 50 Mcg Tablet PO 50 mcg 0600 HEAVEN Administration Magnesium Hydroxide 30 ml 04/15/21 17:29 04/18/21 09:11 Magnesium Hydroxide 30 Ml Udc PO 30 ml DAILY PRN Administration Constipation Ondansetron HCl 4 mg 04/15/21 17:29 04/17/21 04:33 Ondansetron 4 Mg Odt PO 4 mg Q8HR PRN Administration Nausea And Vomiting Sodium Chloride 10 ml 04/15/21 21:00 04/18/21 09:16 Sodium Chloride 0.9% Flush IV 10 ml BID HEAVEN Administration Exam Vital Signs (past 8 hours): - 04/18/21 13:00 04/18/21 14:00 04/18/21 14:44 Temperature Pulse Rate 67 53 L Respiratory Rate Blood Pressure Pulse Oximetry 92 98 100 04/18/21 15:00 04/18/21 15:22 04/18/21 15:29 Temperature 98.2 F Pulse Rate 64 55 L 47 L Respiratory Rate 22 Blood Pressure 142/69 H 142/69 H Pulse Oximetry 92 82 L 96 04/18/21 16:00 04/18/21 16:59 04/18/21 17:00 Temperature Pulse Rate 60 98 H 48 L Respiratory Rate 28 H 22 Blood Pressure 142/60 H 129/73 Pulse Oximetry 90 L 97 94 04/18/21 17:12 04/18/21 17:34 04/18/21 18:00 Temperature 98.5 F Pulse Rate 52 L 61 48 L Respiratory Rate 25 H 18 15 Blood Pressure 153/82 H 153/82 H 150/77 H Pulse Oximetry 97 89 L 99 04/18/21 18:12 04/18/21 19:00 04/18/21 20:00 Temperature Pulse Rate 46 L 46 L 45 L Respiratory Rate 19 15 19 Blood Pressure 150/77 H 123/62 148/82 H Pulse Oximetry 94 94 97 Fraction of Inspired Oxygen 75 Oxygen Delivery Method High Flow Nasal Cannula Oxygen Flow Rate 50 Objective Labs Result Diagrams: 04/18/21 04:39 04/18/21 04:39 Labs: Laboratory Results - last 24 hr 04/18/21 04/18/21 04:39 04:39 WBC 7.2 RBC 4.40 Hgb 12.3 Hct 36.4 MCV 82.7 MCH 28.1 MCHC 33.9 RDW 14.7 Plt Count 300 Neut % (Auto) 78.4 H Lymph % (Auto) 14.3 L Stanton % (Auto) 7.3 Eos % (Auto) 0.0 L Baso % (Auto) 0.0 Neut # (Auto) 5600 Lymph # (Auto) 1000 L Stanton # (Auto) 500 Eos # (Auto) 0 Baso # (Auto) 0 Sodium 134 L Potassium 4.6 Chloride 101 Carbon Dioxide 28 BUN 23 H Creatinine 0.84 Estimated GFR > 60.0 BUN/Creatinine Ratio 27.4 H Glucose 113 H Calcium 9.0 Magnesium 2.3 Total Bilirubin 0.6 AST 45 H ALT 33 Alkaline Phosphatase 60 Total Protein 6.8 Albumin 3.5 Globulin 3.3 Albumin/Globulin Ratio 1.1 Assessment & Plan Assessment and plan (1) Acute respiratory failure with hypoxemia: Status: Acute Assessment & Plan narrative: # Acute hypoxemia respiratory failure -- Secondary to COVId-19 and query component of pulmonary edema -- Will initiate lasix 20 mg IV BID to seek net negative fluid balance as long as renal function tolerate -- COVID rx as below -- RT to titrate FiO2 to maintain goal SpO2 > 88% -- Encourage proning and IS as tolerated -- Monitor strict I/O -- Per documentation patient's code status DNI # COVID pneumonia -- Risk factors -> age -- Refused remdesivir therapy -- On baricitinib and decadron -- Recommend checking venous duplex upper and lower extremities -- Start diuresis to seek net negative fluid balance -- Encourage proning -- Goal SpO2 > 88% Discussed treatment plan w/ RN and RT. Time Spent With Patient Critical Care time: I spent a total of [] minutes of critical care time on this patient's care today; this time is exclusive of procedural time.
[2021-04-18] MEDS: MELATONIN 3 MG TABLET 6 MG PO (21:42)
[2021-04-19] VITALS (25 sets, daily range): BP systolic 107–172; BP diastolic 54–84; PULSE 38–64; RESP 12–25; TEMP 36.4–37.1; O2SAT 89–100
--- NOTE | 2021-04-19 03:08 | PC.NURSE ---
Report received, care assumed 1930. Pt oriented and appropriate. Sinus bradycardia mostly 40's and 50's, VSS. HHF 50lpm, 75%, tolerating well, maintaining oxygen sats. Discussed proning; pt states she can't sleep while proning. I suggested that if she can't tolerate it while sleeping, she try to prone much of the daytime. Pt. verbalizes understanding. Pt is poorly-rested, exhausted, irritable; her main goal is sleep. For this reason, I held the evening dose of diuretic, to be started tomorrow instead. No edema noted at this time, nor increased WOB. Melatonin ordered, administered. Pt sleeping soundly. Somewhat hypertensive 150's/80's, HR lower with sleep 37-42, hospitalist aware.
[2021-04-19 04:38] LABS: Hematocrit 36.2 % (36-46); Hemoglobin 12.2 g/dL (12.0-16.0); Mean Corpuscular HGB Conc 33.8 % (30-36); Mean Corpuscular Hemoglobin 27.8 PG (26-34); Mean Corpuscular Volume 82.1 fL (80-100); Platelet Count 315 X10^3/uL (150-400); Red Blood Cell Count 4.41 X10^6/uL (4.0-5.2); Red Cell Distribution Width 14.7 % (11.6-14.8); White Blood Cell Count 6.3 X10^3/uL (4.5-11.0)
[2021-04-19 04:45] LABS: BUN Creatinine Ratio 26.9 (6-22); Blood Urea Nitrogen 25 mg/dL (7-17); Calcium 8.9 mg/dL (8.4-10.2); Carbon Dioxide 31 mmol/L (22-32); Chloride 98 mmol/L (98-107); Estimated Glomerular Filt Rate 58.2 mL/min (>60); Glucose 107 mg/dL (80-110); HEMOLYSIS < 15 (0-50); Potassium 4.4 mmol/L (3.4-5.1); Sodium 133 mmol/L (137-145)
[2021-04-19] MEDS: LEVOTHYROXINE 50 MCG TABLET PO (06:17)
[2021-04-19] MEDS: MAGNESIUM HYDROXIDE 30 ML UDC PO (08:38)
[2021-04-19] MEDS: DEXAMETHASONE 10 MG/ML VIAL 6 MG IV (08:38)
[2021-04-19] MEDS: ENOXAPARIN 40 MG/0.4 ML SYRINGE SUBCUT (08:38)
[2021-04-19] MEDS: BARICITINIB 2 MG TABLET 4 MG PO (08:38)
[2021-04-19] MEDS: FUROSEMIDE 20 MG/2 ML VIAL IV ×2 (08:38→16:00)
[2021-04-19] MEDS: SODIUM CHLORIDE 0.9% FLUSH 10 ML IV ×2 (08:39→21:56)
--- NOTE | 2021-04-19 10:20 | PM.PN.EICU ---
Subjective Subjective :: This patient was seen via real time interactive two-way audiovisual telecommunication. patient remains on hihg flow, but is requiring less fio2. tolerating PO. Imaging reviewed Current Medications Current Medications Medications: Home Medications levothyroxine 50 mcg tablet 50 mcg PO DAILY 04/15/21 [History Confirmed 04/15/21] Visit Medications (administered) Generic Name Dose Route Start Last Admin Trade Name Freq PRN Reason Stop Dose Admin Dexamethasone 6 mg 04/16/21 09:00 04/19/21 08:38 Dexamethasone 10 Mg/Ml Vial IV 6 mg DAILY HEAVEN Administration Enoxaparin Sodium 40 mg 04/16/21 09:00 04/19/21 08:38 Enoxaparin 40 Mg/0.4 Ml Syringe SUBCUT 40 mg DAILY HEAVEN Administration Furosemide 20 mg 04/18/21 21:00 04/19/21 08:38 Furosemide 20 Mg/2 Ml Vial IV 20 mg BID HEAVEN Administration Levothyroxine Sodium 50 mcg 04/18/21 06:00 04/19/21 06:17 Levothyroxine 50 Mcg Tablet PO 50 mcg 0600 HEAVEN Administration Magnesium Hydroxide 30 ml 04/15/21 17:29 04/19/21 08:38 Magnesium Hydroxide 30 Ml Udc PO 30 ml DAILY PRN Administration Constipation Melatonin 6 mg 04/18/21 21:45 04/18/21 21:42 Melatonin 3 Mg Tablet PO 6 mg BEDTIME HEAVEN Administration Ondansetron HCl 4 mg 04/15/21 17:29 04/17/21 04:33 Ondansetron 4 Mg Odt PO 4 mg Q8HR PRN Administration Nausea And Vomiting Sodium Chloride 10 ml 04/15/21 21:00 04/19/21 08:39 Sodium Chloride 0.9% Flush IV 10 ml BID HEAVEN Administration Objective Labs Result Diagrams: 04/19/21 04:20 04/19/21 04:20 Labs: Laboratory Results - last 24 hr 04/19/21 04/19/21 04:20 04:20 WBC 6.3 RBC 4.41 Hgb 12.2 Hct 36.2 MCV 82.1 MCH 27.8 MCHC 33.8 RDW 14.7 Plt Count 315 Sodium 133 L Potassium 4.4 Chloride 98 Carbon Dioxide 31 BUN 25 H Creatinine 0.93 Estimated GFR 58.2 L BUN/Creatinine Ratio 26.9 H Glucose 107 Calcium 8.9 Exam Vital Signs (past 8 hours): - 04/19/21 03:00 04/19/21 03:36 04/19/21 04:00 Temperature 98.7 F Pulse Rate 44 L 43 L 42 L Respiratory Rate 12 15 23 Blood Pressure 155/84 H 155/84 H 156/73 H Pulse Oximetry 96 96 99 04/19/21 05:00 04/19/21 05:38 04/19/21 06:00 Temperature Pulse Rate 42 L 44 L 49 L Respiratory Rate 14 19 25 H Blood Pressure 156/77 H 156/77 H 155/77 H Pulse Oximetry 100 98 97 04/19/21 07:00 04/19/21 08:00 04/19/21 08:55 Temperature 97.9 F Pulse Rate 41 L 43 L 55 L Respiratory Rate 22 24 24 Blood Pressure 172/79 H 144/76 H 144/76 H Pulse Oximetry 99 99 95 Fraction of Inspired Oxygen 77 Oxygen Delivery Method Heated High Flow Oxygen Flow Rate 50 Narrative Exam Narrative: surrogate for physical exam is primary team Quality TeleICU VTE Deep Vein Thrombosis/Pulmonary Embolism Present on Admission: No Assessment & Plan Assessment & Plan narrative: Assessment Acute hypoxemic resp failure ARDS COVID 19 hypothryroidism Plan continue high flow o2 self proning as tolerated serial XR map goal > 65 encourage po intake trend cbc bmp monitor UO continue lasix to maintain a negativ fluid balance on steroids cont barcitinib remdesivir refused DNI per pateint dvt ppx sup CCT 35 min Time Spent With Patient Critical Care time: I spent a total of [] minutes of critical care time on this patient's care today; this time is exclusive of procedural time.
[2021-04-19] MEDS: ACETAMINOPHEN 325 MG TABLET 650 MG PO ×2 (11:17→18:17)
[2021-04-19] MEDS: ONDANSETRON 4 MG ODT PO (11:17)
--- NOTE | 2021-04-19 13:31 | PM.PN.1 ---
Subjective Subjective Date Patient Seen: 04/19/21 Time Patient Seen: 13:32 Interval history: L sided thoracic and lower cervical back pain. She does not feel currently short of breath, but still requires significant oxygen, and gets short of breath with minimal activity. Exam Vital Signs (past 8 hours): - 04/19/21 05:38 04/19/21 06:00 04/19/21 07:00 Temperature Pulse Rate 44 L 49 L 41 L Respiratory Rate 19 25 H 22 Blood Pressure 156/77 H 155/77 H 172/79 H Pulse Oximetry 98 97 99 04/19/21 08:00 04/19/21 08:30 04/19/21 08:55 Temperature 97.9 F Pulse Rate 43 L 55 L Respiratory Rate 24 24 Blood Pressure 144/76 H 144/76 H Pulse Oximetry 99 98 95 04/19/21 10:55 04/19/21 12:00 04/19/21 13:14 Temperature 97.6 F Pulse Rate 50 L 51 L 64 Respiratory Rate 24 18 24 Blood Pressure 121/67 107/54 L 124/71 Pulse Oximetry 95 98 95 Fraction of Inspired Oxygen 50 Oxygen Delivery Method Heated High Flow Oxygen Flow Rate 50 Narrative Exam Narrative: GENERAL APPEARANCE: Well developed, well nourished, but mildly ill-appearing elderly female, moaning and huddled forward from neck pain. SKIN: Inspection of the skin reveals no rashes, ulcerations. HEENT:? Normocephalic atraumatic, extraocular muscles are intact, oropharynx is clear and mucous membranes are moist, neck is supple without adenopathy NECK: Supple and symmetric. There was no thyroid enlargement, and no tenderness, or masses were felt. CHEST: Normal AP diameter and normal contour without any kyphoscoliosis. LUNGS: Auscultation of the lungs revealed bilateral lower lobe crackles with R > L. No wheezing CARDIOVASCULAR: There was a regular rate and rhythm with a 2/6 systolic murmur. Peripheral pulses were 2+ and symmetric. ABDOMEN: S NT ND MUSCULOSKELETAL: There was L paraspinal cervical and thoracic tenderness with tight paraspinal musculature. Muscle strength and tone were normal. EXTREMITIES: No cyanosis, clubbing or edema. NEUROLOGIC: Alert and oriented x 3. Normal affect. Strength is +5/5 in the Upper Extremities and Lower Extremities Bilaterally. Sensation to touch was normal. Objective Labs Result Diagrams: 04/19/21 04:20 04/19/21 04:20 Labs: Laboratory Results - last 24 hr 04/19/21 04/19/21 04:20 04:20 WBC 6.3 RBC 4.41 Hgb 12.2 Hct 36.2 MCV 82.1 MCH 27.8 MCHC 33.8 RDW 14.7 Plt Count 315 Sodium 133 L Potassium 4.4 Chloride 98 Carbon Dioxide 31 BUN 25 H Creatinine 0.93 Estimated GFR 58.2 L BUN/Creatinine Ratio 26.9 H Glucose 107 Calcium 8.9 PFSH Medical History Hypothyroidism Surgical History H/O: hysterectomy Family History Mother CAD (coronary artery disease) Father CAD (coronary artery disease) CVA (cerebral vascular accident) Social History household members: none Smoking Status: Never smoker Assessment & Plan Assessment & Plan narrative: 1. Acute respiratory failure with hypoxia secondary to COVID 19 pneumonia, present on admission - resfused remdesivir - on baracitinib, dexamethasone, will continue. -proning encourage - continue supplemental O2 as needed. Initially 15L HFNC then slightly improved before worsening to heated high flow currently. Goal O2 >88%. Wean as tolerated. - symptomatic therapy with tylenol, motrin, immodium okay if severe diarrhea. - Likely date exposed was 04/01/21 with symptoms starting shortly after. - CT angio chest and abdomen (not PE protocol) did not show evidence of a central pulmonary embolus. - appreciate tele-general purchasing agent consultation. 2. Hypothyroidism, chronic ?- no overt symptoms. High Free T4 and low TSH, her home dosing was reduced from 50 mcg to 25. 3. Hyponatremia, presumed acute, improved ?- likely secondary to dehydation. Provided light rehydration given recent decreased PO intake and diarrhea with 70 mL / hr NS. Watch for signs of volume overload but no known heart disease or failure. 4. Ascending aortic aneurysm ?- 4.8 cm on CTA performed in ER. Recommend outpatient follow up. DNI, would be open to shocking of her heart but if resuscitation means placing on a ventilator she is against this. Surrogate decision maker is her daughter. I spent 30 minutes providing critical care management this patient. This excludes time spent in performing separately billed procedures. Time Spent With Patient Critical Care time: I spent a total of [] minutes of critical care time on this patient's care today; this time is exclusive of procedural time. Quality VTE Deep Vein Thrombosis/Pulmonary Embolism Present on Admission: No
[2021-04-19] MEDS: diazePAM 2 MG TABLET PO ×2 (14:03→18:17)
--- NOTE | 2021-04-19 15:28 | DIET.PN1 ---
Dietary Progress Note RD Note: Pt with poor POs secondary to nausea and sensation of churning in stomach from bowel medications. Boring Machine Set Up Operator Jig calling up to patient room to help order items which seem appealing and tolerable to pt, for lunch, ONS Kaleb and chicken noodle soup. Nurse Manuel will talk with family about pts favorite foods to try to spur increased POs. Ht: 167.64 cm Wt: 68 kg BMI: 24.0 Last BM: 04/16/21 (04/16/21 19:15) MNA: 11 Brendon Score: 20 Diet: 04/15/21 Dinner General (Regular) Diet Diet Modifications: Nutrition Percent Meal Consumed 75% 04/19/21 13:38 Percent Meal Consumed couple bites of eggs 04/19/21 10:00 Percent Meal Consumed 25% 04/18/21 14:00 Labs: RBC 4.41 X10^6/uL (4.0-5.2) 04/19/21 04:20 Hgb 12.2 g/dL (12.0-16.0) 04/19/21 04:20 Hct 36.2 % (36-46) 04/19/21 04:20 Creatinine 0.93 mg/dL (0.52-1.04) 04/19/21 04:20 Hemoglobin A1c 5.6 % (4.0-6.0) 04/16/21 04:39 Lactate 1.7 mmol/L (0.7-2.1) 04/15/21 11:00 Ferritin 670 ng/mL (11-264) H 04/16/21 04:39 Monitoring/Evaluations: following POs Electronically Signed by: Monica Khan 04/19/21 15:28 Clinical Dietitian [address] [address]
[2021-04-19] MEDS: BISACODYL 5 MG TABLET PO (15:57)
--- NOTE | 2021-04-19 18:00 | PC.NURSE ---
Pt is doing well. O2 needs greatly decreased over course of shift. Pt is currently on 6L high flow nasal cannula with SPO2 95%. Pt is denying shortness of breath on exertion. She is getting OOB to chair for meals and up to BSC to void with SBA and FWW. Pt ambulated around the room with FWW on 6L maintaining SPO2 90%. Spoke with Dr. Chery. Orders received to transfer pt to acute care.
[2021-04-19] MEDS: SENNOSIDES 8.6 MG TABLET 17.2 MG PO (21:55)
[2021-04-19] MEDS: DOCUSATE 100 MG CAPSULE PO (21:57)
[2021-04-19] MEDS: MELATONIN 3 MG TABLET 6 MG PO (21:57)
[2021-04-20] VITALS (14 sets, daily range): BP systolic 77–166; BP diastolic 46–66; PULSE 45–73; RESP 15–24; TEMP 36.6–36.9; O2SAT 85–98
[2021-04-20] MEDS: diazePAM 2 MG TABLET PO ×2 (04:56→10:26)
--- NOTE | 2021-04-20 06:29 | PC.NURSE ---
Shift Note-Patient dozed intermittently, side lying and on back for few hours, no proning. HFNC at 10L to keep SpO2 88-90%, at time it was at 100%, desats to 84% during activity, no tachypnea and denies shortness of breath, no cough. 1 person assist to BSC, had small loose mucoid stool, does not use call light. PO diazepam given for neck pain/spasms.
[2021-04-20] MEDS: polyethylene glycoL 3350 17 GM POWD.PACK PO (08:10)
[2021-04-20] MEDS: ENOXAPARIN 40 MG/0.4 ML SYRINGE SUBCUT (08:10)
[2021-04-20] MEDS: DOCUSATE 100 MG CAPSULE PO ×2 (08:11→20:16)
[2021-04-20] MEDS: FUROSEMIDE 20 MG/2 ML VIAL IV (08:11)
[2021-04-20] MEDS: DEXAMETHASONE 10 MG/ML VIAL 6 MG IV (08:11)
[2021-04-20] MEDS: BARICITINIB 2 MG TABLET 4 MG PO (08:11)
[2021-04-20] MEDS: LEVOTHYROXINE 50 MCG TABLET PO (08:12)
[2021-04-20] MEDS: SODIUM CHLORIDE 0.9% FLUSH 10 ML IV ×2 (08:12→20:17)
[2021-04-20] MEDS: ACETAMINOPHEN 325 MG TABLET 650 MG PO (10:06)
[2021-04-20] MEDS: ONDANSETRON 4 MG ODT PO (10:26)
--- NOTE | 2021-04-20 12:18 | PC.NURSE ---
Addendum entered by Manuel Corrigan R.N. 04/20/21 13:52: Dr. Chery rounded. Reported pt with 200 ML UOP so far this shift. Repeat BP 86/49 (64). No new orders. Original Note: During noon VS noted BP 77/46 (57) HR 50s SB. Pt denies dizziness/lightheadedness. AO x4 and responding appropriately. Pt is sitting up to chair with legs down. Reclined chair and elevated legs. Rechecked BP 91/52 (67) HR 50s SB. Reported to Dr. Chery. Reviewed medications. Orders received to dc lasix and monitor BP. Pt remains asymptomatic.
--- NOTE | 2021-04-20 15:02 | P.PN_ITS ---
Subjective Subjective Date Patient Seen: 04/20/21 Time Patient Seen: 15:03 Interval history: She does not feel currently short of breath, but still requires significant oxygen, and gets short of breath with minimal activity though she is improved from yesterday. Down to 3 L from heated high flow yesterday. Improved neck pain. Exam Vital Signs (past 8 hours): - 04/20/21 07:40 04/20/21 08:30 04/20/21 10:25 Temperature 97.8 F Pulse Rate 54 L Respiratory Rate 15 Blood Pressure 124/61 Pulse Oximetry 95 91 98 04/20/21 12:00 04/20/21 12:01 04/20/21 12:05 Temperature 97.8 F Pulse Rate 51 L 47 L Respiratory Rate 15 16 Blood Pressure 77/46 L 91/52 L Pulse Oximetry 91 96 91 04/20/21 14:00 Temperature Pulse Rate Respiratory Rate Blood Pressure Pulse Oximetry 96 Fraction of Inspired Oxygen 50 Oxygen Delivery Method High Flow Nasal Cannula Oxygen Flow Rate 3 Narrative Exam Narrative: GENERAL APPEARANCE: Well developed, well nourished, but mildly ill-appearing elderly female, moaning and huddled forward from neck pain. SKIN: Inspection of the skin reveals no rashes, ulcerations. HEENT:? Normocephalic atraumatic, extraocular muscles are intact, oropharynx is clear and mucous membranes are moist, neck is supple without adenopathy NECK: Supple and symmetric. There was no thyroid enlargement, and no tenderness, or masses were felt. CHEST: Normal AP diameter and normal contour without any kyphoscoliosis. LUNGS: Auscultation of the lungs revealed bilateral lower lobe crackles now minimal. No wheezing. CARDIOVASCULAR: There was a regular rate and rhythm with a 2/6 systolic murmur. Peripheral pulses were 2+ and symmetric. ABDOMEN: S NT ND MUSCULOSKELETAL: There was L paraspinal cervical and thoracic tenderness with tight paraspinal musculature. Muscle strength and tone were normal. EXTREMITIES: No cyanosis, clubbing or edema. NEUROLOGIC: Alert and oriented x 3. Normal affect. Strength is +5/5 in the Upper Extremities and Lower Extremities Bilaterally. Sensation to touch was normal. Objective Labs Result Diagrams: 04/19/21 04:20 04/19/21 04:20 [facility] Medical History Hypothyroidism Surgical History H/O: hysterectomy Family History Mother CAD (coronary artery disease) Father CAD (coronary artery disease) CVA (cerebral vascular accident) Social History household members: none Smoking Status: Never smoker Assessment & Plan Assessment & Plan narrative: 1. Acute respiratory failure with hypoxia secondary to COVID 19 pneumonia, present on admission - resfused remdesivir - on baracitinib, dexamethasone, will continue. -proning encourage - continue supplemental O2 as needed. Initially 15L HFNC then slightly improved before worsening to heated high flow currently. Goal O2 >88%. Wean as tolerated. Patient was diuresed per tele-wine and spirits clerk servist. Now hypotensive, will stop diuretic. - symptomatic therapy with tylenol, motrin, immodium okay if severe diarrhea. - Likely date exposed was 04/01/21 with symptoms starting shortly after. - CT angio chest and abdomen (not PE protocol) did not show evidence of a central pulmonary embolus. - appreciate tele-wine and spirits clerk consultation. 2. Hypothyroidism, chronic ?- no overt symptoms. High Free T4 and low TSH, her home dosing was reduced from 50 mcg to 25. 3. Hyponatremia, presumed acute, improved ?- likely secondary to dehydation. Provided light rehydration given recent decreased PO intake and diarrhea with 70 mL / hr NS. Now off IV fluids. Watch for signs of volume overload but no known heart disease or failure. 4. Ascending aortic aneurysm ?- 4.8 cm on CTA performed in ER. Recommend outpatient follow up. DNI, would be open to shocking of her heart but if resuscitation means placing on a ventilator she is against this. Surrogate decision maker is her daughter. Time Spent With Patient Critical Care time: I spent a total of [] minutes of critical care time on this patient's care today; this time is exclusive of procedural time. Quality VTE Deep Vein Thrombosis/Pulmonary Embolism Present on Admission: No
[2021-04-20] MEDS: SENNOSIDES 8.6 MG TABLET 17.2 MG PO (20:16)
[2021-04-20] MEDS: MELATONIN 3 MG TABLET 6 MG PO (20:17)
[2021-04-21] VITALS (10 sets, daily range): BP systolic 115–148; BP diastolic 57–75; PULSE 42–62; RESP 15–92; TEMP 36.2–36.8; O2SAT 87–92
--- NOTE | 2021-04-21 06:09 | PC.NURSE ---
Shift Note-Patient has been on 3-4L HFNC, SpO2 86-93%, RR 10-low 20s, denies dyspnea, lung sounds dim with fine crackles LLL, coarse crackles RLL, no cough, denies neck pain. HR regular 40s-50s, goes down to 30s when she sleeps on Lt side. BP 120/60 and 115/57 No BM.
[2021-04-21] MEDS: polyethylene glycoL 3350 17 GM POWD.PACK PO (09:48)
[2021-04-21] MEDS: BARICITINIB 2 MG TABLET 4 MG PO (09:48)
[2021-04-21] MEDS: DEXAMETHASONE 10 MG/ML VIAL 6 MG IV (09:48)
[2021-04-21] MEDS: ENOXAPARIN 40 MG/0.4 ML SYRINGE SUBCUT (09:48)
[2021-04-21] MEDS: DOCUSATE 100 MG CAPSULE PO (09:48)
[2021-04-21] MEDS: ACETAMINOPHEN 325 MG TABLET 650 MG PO (09:48)
[2021-04-21] MEDS: LEVOTHYROXINE 50 MCG TABLET PO (09:49)
[2021-04-21] MEDS: SODIUM CHLORIDE 0.9% FLUSH 10 ML IV (09:54)
--- NOTE | 2021-04-21 11:30 | PT.IIE ---
Current Diagnoses Acute respiratory failure with hypoxia (04/15/21) COVID-19 (04/15/21) Medical History (Last Reviewed 04/15/21 @ 17:21 by John Chery DO) Hypothyroidism Physical Therapy Inpatient Evaluation/Re-Eval M1 PT/OT-IP Prior Functional Status Start: 04/21/21 13:26 Freq: NEEDED Status: Active Protocol: Document 04/21/21 11:30 AB (Rec: 04/21/21 13:43 AB [id number]) Medical Review Prior Functional Status Medical History Reviewed Yes Communication able to make needs known but needs time to respond to questions Mobility and Gait pt stated that she is independent with all mobilities and ambulation without AD Social History Household Members none Living Arrangements House Number of Floors (Floors) One Floor Number of Stairs To Enter/Railing? stated that she has a flight of steps with L rail to enter the house Home Environment Standard Height Toilet,Walk in Shower Home Equipment Hand Held Shower,Grab Bars In Shower Additional Social History Comment pt stated that her friends gives her food for her meals M2 PT-IP Current Condition Start: 04/21/21 13:26 Freq: NEEDED Status: Active Protocol: Document 04/21/21 11:30 AB (Rec: 04/21/21 13:43 AB [email or web address]) Physical Therapy Current Condition Current Condition Evaluation Date 04/21/21 Treatment Diagnosis Covid PNA; difficulty in walking Onset Date 04/15/21 M3 PT-IP Subjective Start: 04/21/21 13:26 Freq: NEEDED Status: Active Protocol: Document 04/21/21 11:30 AB (Rec: 04/21/21 13:43 AB [id number]) Subjective Physical Therapy Visit Type Type Initial Evaluation Visit Start Time 11:30 Visit Stop Time 12:20 Total Visit Minutes 50 Number of BED CONTROL SPECIALIST Visits 0 Physical Therapy Visit Comments Patient Comments pt is agreeable to do PT Therapy Pain Assessment Pain When Pain Assessed At Rest Location Neck Scale Used pain scale not stated Pain Management Techniques Distraction,Re-positioning Back Scale Used pain scale not stated; c/o after mobility Pain Management Techniques Distraction,Re-positioning M4 PT-IP Mobility and Gait Start: 04/21/21 13:26 Freq: NEEDED Status: Active Protocol: Document 04/21/21 11:30 AB (Rec: 04/21/21 13:43 AB [email or web address]) PT-Bed Mobility Assessment Supine to Sit Supine to Sit Standby Assistance Sit to Supine Sit to Supine Standby Assistance PT-Transfer Assessment Sit to and From Stand Sit to and from Stand Contact Guard Assistance,1 Person Assistance,Use of Upper Extremities Equipment Transfer Assistive Device Gait Belt,Front Wheeled Walker Orthotic/Prosthetic Devices or Brace: No Transfers Transfer Destination Bedside Commode Transfer Technique ambulated using FWW Transfer Ability Level of Assist Contact Guard Assistance, Minimal Assistance,1 Person Assistance,Use of Upper Extremities Comments Mobility Comments pt sitting on chair. agreed to do PT. seems to have some cognitive issues and requires time to answer questions. pt requested to use the toilet. completed sit to stand from the chair CGA and ambulated to the bedside commode using FWW ~ 12 ft CGA to min A. pt completed sit to stand from the bedside commode CGA and ambulated to the bed min to mod A and max cues. O2 sat 86 -88%. pt seems to have difficulty following directions and needed to rest seated on EOB. cued for deep breathing. completed bed mobility sit<>supine SBA. pt agreed to get up again to sit on chair for lunch. O2 sat 92% completed sit to stand from EOB CGA and ambulated to [facility] CGA to min A towards end of ambulation. positioned on chair. call light and table placed within reach. chair alarm on. Gait Assessment Gait Gait Assistance Required: Contact Guard Assist,Minimum Assistance,Moderate Assistance ,1 Person Assist Distance (Feet) 12 Able to Maintain Weight Bearing Status Yes During Gait Assistive Devices Assistive Device Gait Belt,Front Wheeled Walker Orthotic/Prosthetic Devices or Brace: No Gait Deviations General Gait Pattern Decreased Stride Length, Decreased Feet Clearance Factors Limiting Gait Function Factors Limiting Gait Function Decreased Activity Tolerance, Decreased Strength,Difficulty Following Directions,Limited Range of Motion,Pain,Poor Balance,Poor Safety Awareness, Respiratory Distress PT-Balance Assessment Sitting Balance and Reactions Static Sitting Balance Ability Good Dynamic Sitting Balance Ability Good Standing Balance and Reactions Static Standing Balance Ability Fair Dynamic Standing Balance Ability Fair Device Used FWW M5 PT-IP Objective Assessments Start: 04/21/21 13:26 Freq: NEEDED Status: Active Protocol: Document 04/21/21 11:30 AB (Rec: 04/21/21 13:43 AB [email or web address]) Orientation Orientation/Cognition Orientation Name,Situation Safety Awareness Decreased Safety Awareness Memory Description Short Term Impaired Gross Range of Motion Lower Extremity ROM Assessment Within Functional Limits Strength Lower Extremity Strength Assessment Within Functional Limits Muscle Tone Muscle Tone WNL Yes M6 PT-IP Treatment Start: 04/21/21 13:26 Freq: NEEDED Status: Active Protocol: Document 04/21/21 11:30 AB (Rec: 04/21/21 13:43 AB [id number]) Physical Therapy Treatment Education Education Provided Safety M7 PT-IP Assessment and Plan Start: 04/21/21 13:26 Freq: NEEDED Status: Active Protocol: Document 04/21/21 11:30 AB (Rec: 04/21/21 13:43 AB [email or web address]) PT Summary Assessment and Plan Potential Rehabilitation Potential Fair Status of Condition at Evaluation Evolving Summary Impairments Pain,ROM,Strength,Balance, Coordination,Sensation,Tone, Cognition,Bed Mobility, Transfers,Gait,Activity Tolerance Assessment Summary pt requiring CGA to mod A with ambulation using FWW but only tolerated a few feet of ambulation and requiring increase assistance towards end of tx session due to decrease activity tolerance affecting mobility and safety awareness. pt lives alone and will need 24/7 assist availability at this time for safe d/c. will continue to assess progress. Pt also will need to use FWW at this time for safety. O2 sat decreased to 83-84% with mobility with O2 on but recovered to ~ 88% after ~ 20 sec of deep breathing. Goals Bed Mobility Goal Independent Transfer Goal Independent,Front Wheeled Walker Gait Goal Independent,Front Wheel Walker Gait Distance 150 Other Goals improve ambulation without AD 150 ft SBA up/down 12 steps using L rail SBA Days to Meet Goals 10 Frequency of Treatment Frequency Of Treatment Once a Day Treatment Plan Physical Therapy Treatment Plan Bed Mobility Training,Transfer Training,Gait Training, Therapeutic Exercise,Balance Retraining,Discharge Planning, Hot or Cold Pack,Neuromuscular Re-ed,Coordination Retraining Precautions Other Precautions Covid/Droplet precautions Recommendations To Nursing Amount of Assist Needed 1 Person Assist Discharge Recommendations PT Discharge Recommendations Home with 24/7 Assist Available,Home Health,Home vs SNF Equipment Needed for Home Before FWW if not safe without AD Discharge Transportation Needs at Discharge Private Vehicle,Wheelchair/ Cabulance
--- NOTE | 2021-04-21 12:48 | PC.NURSE ---
Addendum entered by Manuel Corrigan R.N. 04/21/21 14:59: Spoke with pt's son, Harjeet, who is willing to stay and provide assistance to pt in her home during recovery. Harjeet is available to pick pt up as soon as home O2 is set up and dc plan in place. Original Note: Pt IV dislodged, unable to flush. Removed PIV with cath tip intact. Unable to give decadron. Notified hospitalist. Pt is also requesting to not have IV replaced and is hopeful to dc home today. Hospitalist instructs to hold off on restarting another IV. Will see pt and review plan of care. Pt is in good spirits. She is up walking around the room with a steady gait on 4L high flow NC. SPO2 90%.
--- NOTE | 2021-04-21 14:27 | CM.DPC ---
Addendum entered by Kalpana Shahid R.N. 04/21/21 15:14: Spoke to Yesenia at [facility] about referral and confirmed that [facility]. Had Dr. Chery sign face to face. Addendum entered by Kalpana Shahid R.N. 04/21/21 15:05: Patient is going to discharge home today, and went ahead and ordered home health for patient, RN, P.T, and O.T. Patient has no preference upon agencies according to nurse. [facility] is on calendar, faxing over orders, face to face, H&P and DC Summary. Gave [facility] brochure to nurse to give to patient. Original Note: DCP Cont: Discussed patient during team rounds. She is not yet medically ready for discharge due to oxygen demands. Plan is for patient to go home when she is deemed medically stable and high oxygen demands not needed. P: DCP to continue to follow for needs. Kalpana Shahid RN/[employer]ing [employer]
--- NOTE | 2021-04-21 14:35 | DIET.PN1 ---
Dietary Progress Note Assessment: pt continued poor po. She reports enjoying egg sandwich provided yesterday. Does not usually like protein shakes, but amenable to trying a chocolate flavored ensure. Will send chocolate ensure max to trial. Ht: 167.64 cm Wt: 66.5 kg BMI: 24.0 UBW: Last BM: 04/16/21 (04/16/21 19:15) MNA: 11 Brendon Score: 19 Diet: 04/15/21 Dinner General (Regular) Diet Diet Modifications: chocolate ensure max Nutrition Percent Meal Consumed two bites of cream of wheat 04/21/21 09:50 Percent Meal Consumed half egg salad sandwhich 04/20/21 13:30 Percent Meal Consumed few bites cream of wheat 04/20/21 10:25 Percent Meal Consumed 25% 04/19/21 18:37 Labs: RBC 4.41 X10^6/uL (4.0-5.2) 04/19/21 04:20 Hgb 12.2 g/dL (12.0-16.0) 04/19/21 04:20 Hct 36.2 % (36-46) 04/19/21 04:20 Creatinine 0.93 mg/dL (0.52-1.04) 04/19/21 04:20 Hemoglobin A1c 5.6 % (4.0-6.0) 04/16/21 04:39 Lactate 1.7 mmol/L (0.7-2.1) 04/15/21 11:00 Ferritin 670 ng/mL (11-264) H 04/16/21 04:39 Interventions: ONS ensure max chocolate Monitoring/Evaluations: PO, ONS tolerance Electronically Signed by: Karina Arreola 04/21/21 14:35 Clinical Dietitian [address] [address]
--- NOTE | 2021-04-21 14:45 | P.DS_ITS ---
History of Present Illness History of Present Illness Date Patient Seen: 04/21/21 Time Patient Seen: 14:45 Chief complaint: SOB Covid+ Narrative: This is a 80-year-old female with a past medical history of hypothyroidism who was brought in by EMS after being seen by her daughter today who stated that she needed to go to the hospital. Over the past 2 weeks patient has had a dry, nonproductive cough with worsening shortness of breath, mainly on exertion. She denies any chest pain, lower extremity swelling, or overt fever. But she has had diarrhea for the past week, and a loss of taste and smell with decreased appetite over that same period of time. She further endorses headaches, muscle aches, joint pains, generalized weakness and malaise worsening over the past week. Patient has not been vaccinated against COVID-19. Two weeks ago she attended a large gathering at a [employer] erie ([place]) with approximately 100 people. She knows of 1 other person who became COVID positive after that event. She has also been out and about in the community without much restriction. Per ER report, the patient was hypoxic in the field with O2 saturations in the mid 70s. On 6 L here her O2 saturations were in the low 80s. They improved to the low 90s on told 15 L via high-flow nasal cannula and the patient appeared more comfortable. She was initially to quite tachypneic but this improved with supplemental oxygen. ABG showed a PO2 on 6 L of 59, with a pCO2 of 27.5, and a pH of 7.49. Initial chemistries revealed a sodium level of 129, chloride of 95, creatinine of 1.06 which appears near baseline. She had a mild AST elevation at 61 but the remainder of her chemistry panel was unremarkable. Troponin was within normal limits at 0.018. EKG showed normal sinus rhythm with without evidence of acute ischemia. COVID-19 testing was positive, rapid flu PCR testing was negative for both flu a and flu B. CT angiogram of her chest and abdomen showed diffuse bilateral pulmonary ground-glass opacities and interstitial opacities. There was also an incidental 4.8 cm ascending aortic aneurysm that was noted. The patient was admitted to Medicine for further management of her acute respiratory failure with hypoxia secondary to COVID-19 pneumonia. Discharge Providers Provider Date of admission: 04/15/21 14:09 Discharge Date: 04/21/21 Primary care physician: John Nieto MD Consults: 04/15/21 17:49 Consult to Respiratory Therapy Evaluate & Treat Comment: Physician Instructions: Evaluate and treat 04/18/21 16:12 Consult to Tele-marriage and family therapist Routine Comment: Consulting Provider: Jona [employer] Reason for consultation: Rehabilitation Case Coordinator services 04/20/21 15:04 Consult to Physical Therapy Evaluate & Treat Comment: Physician Instructions: Evaluate and Treat Discharge provider: John Chery DO Summary Hospital Course Discharge Diagnosis: Please see hospital course by problem list noted below. Hospital Course: 1. Acute respiratory failure with hypoxia secondary to COVID 19 pneumonia, present on admission - resfused remdesivir - patient was continued on baracitinib, dexamethasone until discharge. - Initially 15L HFNC then slightly improved before worsening to heated high flow a few days after admission.Goal O2 >88%. Diuresed by marriage and family therapist service but developed hypotension and lasix was stopped. - after a day on heated high flow she began to rapidly improve. On the day of discharge she was on 3-4 L via nasal cannula. She wished to discharge, she was counseled on the possible risks of discharge including worsening hypoxia and that she would still qualify for baricitinib and decadron therapy here, but these cannot continue as an outpatient. Patient was discharged home with home oxygen. - Likely date exposed was 04/01/21 with symptoms starting shortly after. - CT angio chest and abdomen (not PE protocol) did not show evidence of a central pulmonary embolus. - appreciate tele-marriage and family therapist consultation. 2. Hypothyroidism, chronic ?- no overt symptoms. High Free T4 and low TSH, her home dosing was reduced from 50 mcg to 25. 3. Hyponatremia, presumed acute, improved ?- likely secondary to dehydation. Provided light rehydration given recent decreased PO intake and diarrhea. Ultimately improved and fluids were stopped. 4. Ascending aortic aneurysm ?- 4.8 cm on CTA performed in ER. Recommend outpatient follow up. Time Spent with Patient Time spent: Greater than 30 minutes Exam Vital Signs (past 8 hours): - 04/21/21 07:15 04/21/21 09:50 04/21/21 09:52 Temperature 97.9 F Pulse Rate 53 L Respiratory Rate 15 Blood Pressure 141/65 H Pulse Oximetry 87 L 90 L 90 L 04/21/21 11:00 04/21/21 13:59 Temperature 98.3 F Pulse Rate 54 L Respiratory Rate 92 H Blood Pressure 141/65 H Pulse Oximetry 92 92 Fraction of Inspired Oxygen 50 Oxygen Delivery Method High Flow Nasal Cannula Oxygen Flow Rate 5 Narrative Exam Narrative: GENERAL APPEARANCE: Well developed, well nourished, but mildly ill-appearing elderly female, moaning and huddled forward from neck pain. SKIN: Inspection of the skin reveals no rashes, ulcerations. HEENT:? Normocephalic atraumatic, extraocular muscles are intact, oropharynx is clear and mucous membranes are moist, neck is supple without adenopathy NECK: Supple and symmetric. There was no thyroid enlargement, and no tenderness, or masses were felt. CHEST: Normal AP diameter and normal contour without any kyphoscoliosis. LUNGS: Auscultation of the lungs revealed bilateral lower lobe crackles now minimal. No wheezing. CARDIOVASCULAR: There was a regular rate and rhythm with a 2/6 systolic murmur. Peripheral pulses were 2+ and symmetric. ABDOMEN: S NT ND MUSCULOSKELETAL: There was L paraspinal cervical and thoracic tenderness with tight paraspinal musculature. Muscle strength and tone were normal. EXTREMITIES: No cyanosis, clubbing or edema. NEUROLOGIC: Alert and oriented x 3. Normal affect. Strength is +5/5 in the Upper Extremities and Lower Extremities Bilaterally. Sensation to touch was normal. Objective Labs Result Diagrams: 04/19/21 04:20 04/19/21 04:20 [facility] Medical History Hypothyroidism Surgical History H/O: hysterectomy Family History Mother CAD (coronary artery disease) Father CAD (coronary artery disease) CVA (cerebral vascular accident) Social History household members: none Smoking Status: Never smoker Discharge Plan Discharge Plan Patient Disposition: Home Provider Discharge Comment: You were admitted to the hospital with COVID pneumonia. You improved with time and therapies. You are still requiring some ox ygen, which can be provided at home. Please return to the ER if you have continued hypoxia if you are requiring more oxygen. Discharge orders & Medications Prescriptions: New levothyroxine 25 mcg tablet 25 mcg PO DAILY 30 Days Qty: 30 RF: 0 Discontinued levothyroxine 50 mcg tablet 50 mcg PO DAILY RF: 0 Follow up/Referrals: John Nieto MD [Primary Care Provider] - Diet/Activity/Treatments Diet: Diet as Tolerated Activity: As tolerated Visit Report/Discharge Packet Instructions: Home Oxygen Therapy, Coronavirus Disease 2019, Coronavirus 2019 Vaccine Discharge Data Primary Care Provider: John Nieto V Quality VTE Deep Vein Thrombosis/Pulmonary Embolism Present on Admission: No
--- NOTE | 2021-04-21 15:10 | CM.DPNOTE ---
Faxed Referral packet to [facility] per Elissa and received fax confirm. Coleen Hooker CM Asst.
--- NOTE | 2021-04-21 17:58 | PC.NURSE ---
DC education done by aspen ZELAYA (Bubba). Pt and son present for dc teaching. RT Everton provided education to pt and son re use of home O2. Written instructions provided. All belongings gathered and sent with pt on dc. Pt transferred independently to w/c and was brought to POV in no distress at 1758.
== END 2021-04-21 17:58 | disposition home health service (06) | DRG 177 ==
LOC: ED 13:49 → AC 14:10 → ICU 04-16 09:41 → AC 04-17 15:01 → ICU 04-17 15:01
PROVIDERS: Internal Medicine; Admitting Provider Internal Medicine; Emergency Provider Emergency Medicine; PCP Internal Medicine; Referring Provider Emergency Medicine; Visit Provider Internal Medicine
DX: U07.1 COVID-19 (principal); J12.82 Pneumonia due to coronavirus disease 2019; J96.01 Acute respiratory failure with hypoxia; E87.1 Hypo-osmolality and hyponatremia; E03.9 Hypothyroidism, unspecified; R11.0 Nausea
CPT/HCPCS: 36415; 36600; 71045; 71275; 74175; 80048; 80053; 82550; 82553; 82728; 82805; 82962; 83036; 83605; 83615; 83735; 84145; 84439; 84443; 84484; 85025; 85027; 85379; 85651; 86140; 87040; 87502; 87635; 87797; 93005; 94618; 94640; 94760; 94762; 96374; 97162; 97530; 99285; 99291; C9803; J1100; J1650; J1940; J7613; Q9967

== ENCOUNTER → 2021-10-05 14:31 | Outpatient (CLI) | payer OTHER, SELFPAY ==
[2021-04-15 16:45] VITALS: BMI 24.0
--- NOTE | 2021-10-05 14:33 | DI.MG.S_ITS ---
BILATERAL DIGITAL SCREENING MAMMOGRAM 3D/2D WITH CAD: 10/05/2021 CLINICAL: Routine screening. Comparison is made to exams dated: 12/19/2012 mammogram, 11/30/2011 mammogram, and 01/10/2010 mammogram - [facility]. The tissue of both breasts is predominantly fatty. Current study was also evaluated with a Computer Aided Detection (CAD) system. There is a possible asymmetry in the right breast middle depth superior region seen on the mediolateral oblique view only. There is architectural distortion associated with the asymmetry. No other significant masses, calcifications, or other findings are seen in either breast. IMPRESSION: INCOMPLETE: NEEDS ADDITIONAL IMAGING EVALUATION The possible asymmetry in the right breast is indeterminate. Additional views with possible ultrasound are recommended. This exam was interpreted at Station ID: [id number]. NOTE: For mammograms, a report in lay terms will be sent to the patient. Approximately 15% of breast malignancies will not be visualized mammographically. In the management of a palpable breast mass, a negative mammogram must not discourage biopsy of a clinically suspicious lesion. Electronically Signed By: Joel Lea M.D., jr/amanda:10/05/2021 15:49:23 letter sent: Additional Imaging Needed ACR BI-RADS Category 0: Incomplete [id number]
== END ==
PROVIDERS: PCP Internal Medicine; Referring Provider Internal Medicine; Visit Provider Internal Medicine
DX: Z12.31 Encounter for screening mammogram for malignant neoplasm of breast (principal)
CPT/HCPCS: 77063; 77067

== ENCOUNTER → 2021-11-03 10:24 | Outpatient (CLI) | payer OTHER, SELFPAY ==
[2021-04-15 16:45] VITALS: BMI 24.0
--- NOTE | 2021-11-03 | DI.MG.S_ITS ---
UNILATERAL RIGHT DIGITAL DIAGNOSTIC MAMMOGRAM 3D/2D WITH ADDITIONAL VIEWS: 11/03/2021 CLINICAL: Additional evaluation requested from prior study. Comparison is made to exams dated: 10/05/2021 mammogram, 12/19/2012 mammogram, and 11/30/2011 mammogram - [facility]. There are scattered fibroglandular elements in right breast. The previously described possible asymmetry in the right breast middle depth superior region seen on the mediolateral oblique view only is no longer seen and most likely is fibroglandular tissue. This is not confirmed in additional views. The previously described architectural distortion associated with the asymmetry is also not confirmed. No other significant masses or calcifications are seen in the breast. IMPRESSION: INCOMPLETE: NEEDS ADDITIONAL IMAGING EVALUATION An ultrasound is recommended to confirm the no longer seen asymmetry with possible architectural distortion in the right breast middle depth superior region seen on the mediolateral oblique view only. An ultrasound is recommended for further evaluation and is scheduled to immediately follow this examination. This exam was interpreted at Station ID: [id number]. NOTE: For mammograms, a report in lay terms will be sent to the patient. Approximately 15% of breast malignancies will not be visualized mammographically. In the management of a palpable breast mass, a negative mammogram must not discourage biopsy of a clinically suspicious lesion. Electronically Signed By: Kai Montero M.D. aty/:11/03/2021 11:03:42 ACR BI-RADS Category 0: Incomplete [id number]
--- NOTE | 2021-11-03 | DI.US.S_ITS ---
LIMITED ULTRASOUND OF RIGHT BREAST: 11/03/2021 CLINICAL: Patient returns today to evaluate an asymmetry in the right breast. No prior exams were available for comparison. Real-time ultrasound of the right breast 11-2 o'clock region was performed. Moise scale images of the real-time examination were reviewed. No significant abnormalities were seen sonographically in the right breast. IMPRESSION: NEGATIVE There is no sonographic evidence of malignancy. There is no abnormality seen in the right breast to correspond with the now resolved mammography finding described on most recent screening mammogram dated 10/05/2021 which is consistent with normal fibroglandular tissue. A 1 year screening mammogram is recommended. Findings and recommendations were conveyed to the patient during today's evaluation. This exam was interpreted at Station ID: [id number]. Electronically Signed By: Kai Montero M.D. aty/:11/03/2021 11:59:10 letter sent: Normal Exam Ultrasound BI-RADS: 1 Negative
== END ==
PROVIDERS: PCP Internal Medicine; Referring Provider Internal Medicine; Visit Provider Internal Medicine
DX: R92.8 Other abnormal and inconclusive findings on diagnostic imaging of breast (principal)
CPT/HCPCS: 76642; 77065; G0279

== ENCOUNTER → 2024-06-01 16:22 | Outpatient (CLI) | payer MEDICARE, SELFPAY ==
[2021-04-15 16:45] VITALS: BMI 24.0
== END ==
PROVIDERS: Visit Provider Physician Assistant
DX: L03.115 Cellulitis of right lower limb (principal); L02.415 Cutaneous abscess of right lower limb
CPT/HCPCS: 87070; 87075; 87077; 87147; 87186; 87205

== ENCOUNTER → 2024-06-15 10:10 | Outpatient (CLI) | payer MEDICARE, SELFPAY ==
[2021-04-15 16:45] VITALS: BMI 24.0
--- NOTE | 2024-06-15 10:11 | DI.US.S_ITS ---
PROCEDURE: US PERIPH VENOUS LOW EXTREM RT INDICATIONS: PAIN AND SWELLING OF RT CALF TECHNIQUE: Real-time imaging, as well as color and pulse Doppler interrogation, were performed of the lower extremity deep veins from the inguinal ligament to the popliteal fossa, with documentation of the visualized calf veins. COMPARISON: None. FINDINGS: The common femoral, femoral, popliteal, and the visualized calf veins are normally compressible, and free of intraluminal thrombus. Peroneal veins are not seen secondary to edema. Color and pulse Doppler demonstrate normal phasic intraluminal flow. There is normal augmentation response to distal compression maneuver. IMPRESSION: No findings of lower extremity deep venous thrombosis. Dictated by: Rick Colvin M.D. on 06/15/2024 at 13:05 Approved by: Rick Colvin M.D. on 06/15/2024 at 13:06
== END ==
PROVIDERS: Referring Provider Family Medicine; Visit Provider Family Medicine
DX: M79.661 Pain in right lower leg (principal)
CPT/HCPCS: 93971